=== PATIENT | male | born 2000 | race African-American/Black ===

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

== ENCOUNTER 2018-01-01 16:45 | Emergency (ER) | payer OTHER ==
[2018-01-01] MEDS ORDERED: HYDROmorphone 0.5 MG/0.5 ML SYRINGE ONE (17:33)
[2018-01-01 18:05] LABS: Reticulocyte Count 8.2 % (0.5-1.5)
[2018-01-01 18:12] LABS: Hemoglobin 9.5 g/dL (14.0-18.0); Mean Corpuscular HGB CONC 33.8 g/dL (32.0-36.0); Mean Corpuscular Hemoglobin 25.3 pg (25.0-35.0); Mean Platelet Volume 6.1 fL (7.4-10.4); Platelet Count 264 thou/uL (130-400); RBC Distribution Width 18.8 % (11.5-14.5); Red Blood Cell (RBC) Count 3.74 mill/uL (4.00-5.20); White Blood Cell (WBC) Count 11.9 thou/uL (4.8-10.8)
[2018-01-01 18:14] LABS: Anion Gap 12 mmol/L (10-20); BUN (Urea Nitrogen) 5 mg/dL (8.4-21.0); Calc. Creatinine Clearance 0 mL/min (70-130); Calcium 8.6 mg/dL (7.8-10.44); Carbon Dioxide 24 mmol/L (22-29); Chloride 104 mmol/L (98-107); Estimated GFR-MDRD Greater than 90; Glucose 70 mg/dL (70-105); Sodium 136 mmol/L (136-145)
[2018-01-01 18:29] LABS: Anisocytosis MODERATE=16-30 cells (100X) (0-5/hpf); Band 1 % (5-11); Eosinophils 5 % (0-10); Howell Jolly Bodies SLIGHT = 1-2 cells (100X) (None Seen); Lymphocytes 45 % (28-48); MDiff Complete? YES; Macrocytosis SLIGHT = 6-15 cells (100X) (0-5/hpf); Microcytosis SLIGHT = 6-15 cells (100X) (0-5/hpf); Monocytes 9 % (0-4); Neutrophil 36 % (31-61); Nucleated RBC 4 % (0); Ovalocytes SLIGHT = 2-5 cells (100X) (0-1/hpf); Poikilocytosis SLIGHT = 6-15 cells (100X) (0-5/hpf); Polychromasia MODERATE = 3-4 cells (100X) (0-2/hpf); Reflex for Review?? NO; Sickle Cells MODERATE= 6-15 cells (100X) (None Seen); Target Cells SLIGHT = 2-5 cells (100X) (0-1/hpf)
--- NOTE | 2018-01-01 19:50 | RAD ---
ONE VIEW CHEST: HISTORY: Sickle cell disease. Anemia. Pain. COMPARISON: 08/22/2017 and 10/05/2017 FINDINGS: Portable upright chest shows a normal cardiac silhouette. The pulmonary vessels and hilum are normal . The costophrenic angles are clear. No mass. No consolidation. No pneumothorax or acute osseous abnormalities. Chronic changes in the left humeral head are noted. IMPRESSION: No acute cardiopulmonary process. POS: [facility]
== END 2018-01-01 21:24 | disposition home or self-care (01) ==
LOC: ERS 16:45
DX: D57.00 Hb-SS disease with crisis, unspecified (principal); Z86.73 Personal history of transient ischemic attack (TIA), and cerebral infarction without residual deficits; Z79.899 Other long term (current) drug therapy
CPT/HCPCS: 71045; 80048; 85025; 85046; 96361; 96365; 96366; J1170

== ENCOUNTER 2018-01-05 13:35 | Emergency (ER) | payer OTHER ==
[2018-01-05] MEDS ORDERED: HYDROcodone/Acetaminophen 5/325 mg Tablet ONE (14:35)
[2018-01-05 14:59] LABS: Reticulocyte Count 8.8 % (0.5-1.5)
[2018-01-05 15:07] LABS: Hemoglobin 9.7 g/dL (14.0-18.0); Mean Corpuscular HGB CONC 33.6 g/dL (32.0-36.0); Mean Corpuscular Hemoglobin 25.5 pg (25.0-35.0); Mean Corpuscular Volume 75.9 fL (78.0-98.0); Mean Platelet Volume 11.3 fL (7.4-10.4); Platelet Count 297 thou/uL (130-400); RBC Distribution Width 18.1 % (11.5-14.5); Red Blood Cell (RBC) Count 3.81 mill/uL (4.00-5.20); White Blood Cell (WBC) Count 12.2 thou/uL (4.8-10.8)
[2018-01-05 15:20] LABS: ALT (SGPT) 14 U/L (8-55); AST (SGOT) 32 U/L (10-45); Albumin 4.1 g/dL (3.5-5.0); Alkaline Phosphatase 84 U/L (Less than 750); Anion Gap 10 mmol/L (10-20); BUN (Urea Nitrogen) 6 mg/dL (8.4-21.0); Bilirubin, Total 2.2 mg/dL (0.2-1.2); Calc. Creatinine Clearance 0 mL/min (70-130); Calcium 8.8 mg/dL (7.8-10.44); Carbon Dioxide 27 mmol/L (22-29); Chloride 104 mmol/L (98-107); Estimated GFR-MDRD Greater than 90; Globulin 3.5 g/dL (2.4-3.5); Glucose 79 mg/dL (70-105); Protein, Total 7.6 g/dL (6.0-8.3); Sodium 137 mmol/L (136-145)
[2018-01-05 15:22] LABS: Acanthocytes SLIGHT = 1-5 cells (100X) (None Seen); Anisocytosis SLIGHT = 6-15 cells (100X) (0-5/hpf); Band 1 % (5-11); Lymphocytes 26 % (28-48); MDiff Complete? YES; Monocytes 3 % (0-4); Neutrophil 69 % (31-61); Nucleated RBC 2 % (0); PLT Morphology Comment Appears Adequate; Polychromasia SLIGHT = 2-3 cells (100X) (0-2/hpf); Sickle Cells SLIGHT = 1-5 cells (100X) (None Seen); Target Cells SLIGHT = 2-5 cells (100X) (0-1/hpf)
--- NOTE | 2018-01-05 15:40 | RAD ---
RADIOGRAPH CHEST 2 VIEWS: HISTORY: 17-year-old male with painful mid sternal mass. FINDINGS: There is no air space density, pulmonary edema, pleural effusion, pneumothorax, or cardiomegaly. IMPRESSION: 1. No acute cardiopulmonary findings. 2. For palpable mass in the chest, consider CT with contrast, if clinically suspicious for aggressiv e process. lily [] POS: [facility]
== END 2018-01-05 15:40 | disposition home or self-care (01) ==
LOC: ERS 13:35
DX: D57.00 Hb-SS disease with crisis, unspecified (principal); Z79.899 Other long term (current) drug therapy
CPT/HCPCS: 36415; 71046; 80053; 85025; 85046

== ENCOUNTER 2018-02-11 11:39 | Emergency (ER) | payer OTHER ==
[2018-02-11 12:29] LABS: Reticulocyte Count 6.9 % (0.5-1.5)
[2018-02-11] MEDS ORDERED: Ketorolac Tromethamine 30 MG/ML VIAL ONE (12:36)
[2018-02-11] MEDS ORDERED: Ondansetron HCl/PF 4 MG/2 ML Vial ONE (12:36)
[2018-02-11 12:46] LABS: ALT (SGPT) 22 U/L (8-55); AST (SGOT) 40 U/L (10-45); Albumin 4.4 g/dL (3.5-5.0); Alkaline Phosphatase 85 U/L (Less than 750); Anion Gap 9 mmol/L (10-20); BUN (Urea Nitrogen) 5 mg/dL (8.4-21.0); Calc. Creatinine Clearance 0 mL/min (70-130); Calcium 8.8 mg/dL (7.8-10.44); Carbon Dioxide 26 mmol/L (22-29); Chloride 107 mmol/L (98-107); Estimated GFR-MDRD Greater than 90; Globulin 3.5 g/dL (2.4-3.5); Glucose 84 mg/dL (70-105); Potassium 3.9 mmol/L (3.5-5.1); Protein, Total 7.9 g/dL (6.0-8.3); Sodium 138 mmol/L (136-145)
[2018-02-11 12:52] LABS: Anisocytosis SLIGHT = 6-15 cells (100X) (0-5/hpf); Eosinophils 12 % (0-10); Hemoglobin 10.5 g/dL (14.0-18.0); Lymphocytes 23 % (28-48); MDiff Complete? YES; Mean Corpuscular HGB CONC 35.3 g/dL (32.0-36.0); Mean Corpuscular Hemoglobin 25.4 pg (25.0-35.0); Mean Corpuscular Volume 71.8 fL (78.0-98.0); Mean Platelet Volume 5.5 fL (7.4-10.4); Monocytes 10 % (0-4); Neutrophil 51 % (31-61); Nucleated RBC 2 % (0); PLT Morphology Comment Appears Adequate; Platelet Count 257 thou/uL (130-400); Polychromasia SLIGHT = 2-3 cells (100X) (0-2/hpf); Reactive Lymphocytes 4 % (0-10); Red Blood Cell (RBC) Count 4.12 mill/uL (4.00-5.20); Schistocytes SLIGHT = 2-5 cells (100X) (0-1/hpf); Sickle Cells SLIGHT = 1-5 cells (100X) (None Seen); White Blood Cell (WBC) Count 12.2 thou/uL (4.8-10.8)
--- NOTE | 2018-02-11 12:53 | RAD ---
PORTABLE CHEST: HISTORY: Back pain and chest pain. FINDINGS: The lung parra are clear. No infiltrate. Heart and mediastinum unremarkable. Osseous structures s how deformity of the humeral head on the left which is stable. IMPRESSION: No acute abnormality. POS: [facility]
[2018-02-11 13:39] LABS: Bilirubin Negative (Negative); Blood, Urine Negative (Negative); Clarity CLEAR (Clear); Glucose, Urine (Dipstick) Negative (Negative); Leukocyte Negative (Negative); Nitrite Negative (Negative); Protein, Urine (Dipstick) Negative (Neg-Trace); Specific Gravity, Urine 1.011 (1.002-1.036)
== END 2018-02-11 14:52 | disposition home or self-care (01) ==
LOC: ERS 11:39
DX: D57.1 Sickle-cell disease without crisis (principal); M54.5 Low back pain; Z86.73 Personal history of transient ischemic attack (TIA), and cerebral infarction without residual deficits; Z87.891 Personal history of nicotine dependence; Z79.899 Other long term (current) drug therapy
CPT/HCPCS: 71045; 80053; 81003; 85025; 85046; 96361; 96374; 96375; J1885; J2270; J2405

== ENCOUNTER 2018-02-20 23:12 | Inpatient (IN) | payer OTHER, SELFPAY ==
[2018-02-20] MEDS ORDERED: Morphine 4 MG/ML VIAL ONE (23:32)
[2018-02-20] MEDS ORDERED: Ketorolac Tromethamine 30 MG/ML VIAL ONE (23:33)
[2018-02-20 23:47] LABS: Reticulocyte Count 8.7 % (0.5-1.5)
--- NOTE | 2018-02-20 23:47 | RAD ---
CHEST ONE VIEW: HISTORY: Shortness of breath. COMPARISON: Chest radiograph from 02/11/2018. FINDINGS: Heart size is mildly enlarged for age. There are abnormal perihilar air space opacities. No pneumot horax or effusion. IMPRESSION: 1. Mildly increased perihilar air space opacities may reflect atypical infectious process versus acu te chest syndrome in a sickle cell patient. 2. Osteonecrosis of both humeral heads, which can be seen with chronic sickle cell disease. POS: [facility]
[2018-02-21] LABS: ALT (SGPT) 29 U/L (8-55); AST (SGOT) 43 U/L (10-45); Albumin 4.2 g/dL (3.5-5.0); Alkaline Phosphatase 96 U/L (Less than 750); Anion Gap 12 mmol/L (10-20); BUN (Urea Nitrogen) 7 mg/dL (8.4-21.0); Bilirubin, Total 2.1 mg/dL (0.2-1.2); Calc. Creatinine Clearance 0 mL/min (70-130); Calcium 8.8 mg/dL (7.8-10.44); Carbon Dioxide 23 mmol/L (22-29); Chloride 107 mmol/L (98-107); Estimated GFR-MDRD Greater than 90; Globulin 3.9 g/dL (2.4-3.5); Glucose 104 mg/dL (70-105); Magnesium 2.3 mg/dL (1.7-2.2); Potassium 3.7 mmol/L (3.5-5.1); Protein, Total 8.1 g/dL (6.0-8.3); Sodium 138 mmol/L (136-145)
[2018-02-21 00:04] LABS: CKMB 0.4 ng/mL (0-6.6); Troponin I Less than 0.010 ng/mL (< 0.028)
[2018-02-21 00:10] LABS: Anisocytosis MODERATE=16-30 cells (100X) (0-5/hpf); Band 3 % (5-11); Eosinophils 3 % (0-10); Hemoglobin 9.7 g/dL (14.0-18.0); Lymphocytes 53 % (28-48); MDiff Complete? YES; Mean Corpuscular HGB CONC 34.1 g/dL (32.0-36.0); Mean Corpuscular Hemoglobin 24.9 pg (25.0-35.0); Mean Platelet Volume 5.7 fL (7.4-10.4); Monocytes 8 % (0-4); Neutrophil 33 % (31-61); Nucleated RBC 1 % (0); PLT Morphology Comment Appears Adequate; Platelet Count 331 thou/uL (130-400); RBC Distribution Width 20.6 % (11.5-14.5); Sickle Cells SLIGHT = 1-5 cells (100X) (None Seen); White Blood Cell (WBC) Count 16.2 thou/uL (4.8-10.8)
--- NOTE | 2018-02-21 00:13 | CT ---
CT BRAIN WITHOUT CONTRAST: HISTORY: Sickle cell disease. Pain. Headache. COMPARISON: CT brain from 2012. FINDINGS: There is a similar appearance to the asymmetric volume loss in the right cerebral hemisphere. No acu te intracranial hemorrhage or infarct. No midline shift or mass effect. Prior right craniectomy savannah nges. The paranasal sinuses and mastoids are clear. IMPRESSION: No acute intracranial abnormality. POS: [facility]
[2018-02-21] MEDS ORDERED: Metoclopramide HCl 10 MG/2 ML VIAL ONE (00:29)
[2018-02-21] MEDS ORDERED: HYDROcodone/Acetaminophen 10/325 mg Tablet ONE (00:29)
[2018-02-21] MEDS ORDERED: diphenhydrAMINE 50 MG/ML VIAL ONE (00:29)
[2018-02-21] MEDS ORDERED: cefTRIAXone\\ROCEPHIN 1 GM VIAL ONE (00:57)
[2018-02-21 01:26] LABS: Bilirubin Negative (Negative); Blood, Urine Negative (Negative); Clarity CLEAR (Clear); Glucose, Urine (Dipstick) Negative (Negative); Leukocyte Negative (Negative); Nitrite Negative (Negative); Protein, Urine (Dipstick) Negative (Neg-Trace); Specific Gravity, Urine 1.012 (1.002-1.036)
[2018-02-21] MEDS ORDERED: Fentanyl 100 MCG/2 ML VIAL SLOW IVP PRN (05:54)
[2018-02-21] MEDS ORDERED: HYDROcodone/Acetaminophen 5/325 mg Tablet PO PRN ×3 (05:55→14:08)
[2018-02-21 06:15] VITALS: BMI 23.4
[2018-02-21] MEDS: Sodium Chloride 0.45% 1,000 ML IV SCH ×2 (06:31→14:32)
[2018-02-21] MEDS ORDERED: Ondansetron ODT 4 MG TAB PO PRN (14:08)
[2018-02-21] MEDS ORDERED: Ondansetron HCl/PF 4 MG/2 ML Vial IVP PRN (14:08)
[2018-02-21] MEDS ORDERED: Acetaminophen 500 MG TAB PO PRN (14:08)
--- NOTE | 2018-02-21 15:28 | HP ---
DATE OF ADMISSION: 02/21/2018 PRIMARY CARE PHYSICIAN: Andrés Shaw M.D. CHIEF COMPLAINT: Headache and left chest wall pain. HISTORY OF PRESENT ILLNESS: This is a 17-year-old -Greenlandic male with a significant history o f sickle cell disease presenting with right-sided headache beginning in the last 24 hours with associ ated right eye pain. The patient denies any recent trauma, injury, visual disturbance, ear drainage, water submersion or high altitude exposure. The patient reports a history of subdural hematoma in t he context of sickle cell disease as a child. The patient has also undergone a splenectomy and abdirizak cystectomy as well as sustaining a left-sided cerebrovascular accident with residual left upper extre mity contracture and weakness. The patient has also had a history of bilateral septic shoulder joint s in the context of sickle cell disease. The patient denies any specific fever, chills, increased co ugh, congestion, or purulent sputum. The patient denied central chest pain, pressure, left arm disco mfort. The patient does admit some difficulty with ambulation with left hip pain. The patient appar ently recently relocated to the [facility] after residing in the [facility] for approximately 3 years. The patient denies any specific difficulty with speech, swallowing, or decreased appetite. The patient denies any change to bowel habits, dysuria or blood in the stool. I n the emergency room, the patient underwent general evaluation including chest imaging showing no acu te infiltrates. The patient received IV Rocephin, Reglan, Benadryl, [place], Toradol, morphine sulfate , and intravenous normal saline x1 liter. EKG evaluation showed first degree AV block. The patient was transferred to the telemetry unit for further evaluation. PAST MEDICAL HISTORY: 1. History of sickle cell disease with crisis. 2. History of cerebrovascular accident in the context of sickle cell disease with left upper extremi ty weakness and contracture. 3. History of subdural hematoma. 4. History of septic arthritis of the shoulder joint. PAST SURGICAL HISTORY: 1. Status post splenectomy. 2. Status post laparoscopic cholecystectomy. 3. Status post left shoulder incision and drainage. CURRENT MEDICATIONS: 1. Pen-VK 250 mg p.o. b.i.d. 2. Hydroxyurea 1000 mg p.o. q.a.m. 3. Folic acid 1 mg p.o. daily. 4. Tramadol p.r.n., sickle cell crisis. ALLERGIES: No known drug allergies. FAMILY HISTORY: Positive for hypertension. SOCIAL HISTORY: The patient resides with his mother in [place], [place]. No current alcohol, tobacco or illicit drug use. REVIEW OF SYSTEMS: The following complete review of systems was negative, unless otherwise mentioned in the HPI or below: Constitutional: Weight loss or gain, ability to conduct usual activities. Skin: Rash, itching. Eyes: Double vision, pain. ENT/Mouth: Nose bleeding, neck stiffness, pain, tenderness. Cardiovascular: Palpitations, dyspnea on exertion, orthopnea. Respiratory: Shortness of breath, wheezing, cough, hemoptysis, fever or night sweats. Gastrointestinal: Poor appetite, abdominal pain, heartburn, nausea, vomiting, constipation, or diarr hea. Genitourinary: Urgency, frequency, dysuria, nocturia. Musculoskeletal: Pain, swelling. Neurologic/Psychiatric: Anxiety, depression. Allergy/Immunologic: Skin rash, bleeding tendency. PHYSICAL EXAMINATION: VITAL SIGNS: On admission, blood pressure 105/59, pulse 61, respiratory rate 16, temperature 97.7 de grees Fahrenheit, O2 saturation 100% on 2 liters per minute by nasal cannula. GENERAL APPEARANCE: This is a 17-year-old -Greenlandic male, alert and oriented x3, pleasant, co nversant, in no acute distress. HEENT: Pupils are equal, round, and reactive to light and accommodation. Extraocular muscles are in tact. No scleral icterus, no conjunctival injection. Nares patent. OP is clear. Teeth in good rep air. NECK: Supple, no cervical adenopathy, no thyromegaly, no carotid bruits, no JVD appreciated. Cervic al spine with full active and passive range of motion. No meningeal signs appreciated. CHEST: Lungs are clear to auscultation bilaterally. CARDIOVASCULAR: S1, S2 with 1-2/6 systolic ejection murmur at the apex. ABDOMEN: Rounded, soft, nontender, nondistended. Bowel sounds are positive in all four quadrants. There is no hepatosplenomegaly, no abdominal bruits, no rebound or guarding appreciated. EXTREMITIES: Left upper extremity with contractures consistent with prior CVA history. Bilateral lo wer extremities without asymmetric edema. Pulses palpable distally at the dorsalis pedis, posterior tibial, and popliteal arteries bilaterally. Capillary refill less than 2 seconds. NEUROLOGIC: Cranial nerves II through XII are grossly intact. Left upper extremity weakness and con tracture as stated previously. Moves all extremities. Not observed ambulatory during this exam. No facial asymmetry. PERTINENT LABORATORY DATA AND X-RAY FINDINGS: Basic metabolic profile within normal limits. Calcium 8.8, magnesium 2.3, total bilirubin 2.1, AST 43, ALT 29, albumin 4.2. CBC showed a white blood cell count of 16.2, hemoglobin 9.7, hematocrit 29, MCV 73, platelet count 331 with 33% neutrophils, 3% ba nds, 53% lymphocytes. Reticulocyte count 8.7. Urinalysis on 02/21/2018, negative. CT of the brain without contrast dated 02/20/2018 showed no acute intracranial process. Portable chest x-ray dated 02/20/2018 showed mild perihilar opacities. Osteonecrosis of both humeral heads noted. EKG dated by my interpretation shows sinus mechanism with first degree AV block. Normal R-wave progre ssion noted in the precordial leads. Normal axis. No acute ST-T wave changes appreciated. Telemetr y monitoring currently shows second degree AV block, type 1. ASSESSMENT AND PLAN: 1. Sickle cell pain crisis. The patient will be admitted to the telemetry unit. We will continue i ntravenous normal saline 100 mL per hour, morphine sulfate 2 mg IV every 4 hours p.r.n. pain, [place] 5 /325 mg 1-2 tabs p.o. q.6 hours p.r.n. pain. Continue serial CBC assessment and reticulocyte count t rending. 2. Second degree AV block, type 1. Appears to be a new finding. We will consult Cardiology Service for evaluation. Avoid AV blocking agents. Electrolytes reviewed and within normal limits. 3. Chronic microcytic anemia secondary to sickle cell disease. Stable hemoglobin currently. We marva l continue to trend hemoglobin with repeat CBC in the a.m. 4. Headache, etiology unclear. Initial CT imaging of the brain unremarkable. We will continue supp ortive management as outlined previously and monitor clinical response. 5. Prophylaxis. Sequential compression devices while in bed. Pepcid 20 mg p.o. b.i.d. 6. Code status is full. Surrogate medical decision maker is the patient's mother.
[2018-02-21] MEDS: Sodium Chloride 0.9% 1,000 ML IV SCH ×2 (15:41→23:20)
[2018-02-21] MEDS: Penicillin V Potassium 250 MG TAB PO SCH ×2 (15:53→20:23)
--- NOTE | 2018-02-21 20:19 | CON ---
DATE OF CONSULTATION: 02/21/2018 REASON FOR CONSULTATION: Sickle cell disease. HISTORY OF PRESENT ILLNESS: Mr. Lock is a 17-year-old male with history of sickle cell disease who presented to the emergency room with headache and right eye pain starting approximately 24 hours prior to presentation. He had a brain CT, which showed no acute process. He had a chest x-ray which showed some mildly increased perihilar airspace opacities that could represent an atypical infectious process. Patient had some left chest wall pain and rib pain, no nausea, vomiting or fever. He was admitted for sickle cell pain crisis and possible acute chest syndrome. He was started on O2 and IV fluids, given a dose of Rocephin in the emergency room. Patient lives in [facility] with his father until recently. He now lives with his mother in [place]. She states he has pain crisis several times annually. Review of medical records , he was here in August for sickle cell pain crisis and received 1 unit of packed RBCs. He is managed by his primary care physician. Since admission, he denies any shortness of breath or cough. He was placed on telemetry and is noted that he has an AV block on the manager monitoring. Patient has no prior cardiac issues. PAST MEDICAL HISTORY: 1. Sickle cell disease. 2. Cerebrovascular accident as an infant with left upper extremity weakness and contracture. 3. History of subdural hematoma as an infant. 4. Septic arthritis of shoulders. PAST SURGICAL HISTORY: 1. Splenectomy. 2. Cholecystectomy. 3. I&D of the left shoulder. ALLERGIES: No known drug allergies. HOME MEDICATIONS: 1. Hydrea 1000 mg daily. 2. Penicillin V 250 mg t.i.d. 3. Folic acid 1 mg daily. FAMILY HISTORY: Family history of sickle cell. SOCIAL HISTORY: He is single, lives with his mother. No alcohol, tobacco or illicit drug use. REVIEW OF SYSTEMS: Twelve-point review of systems is negative except for noted in HPI. PHYSICAL EXAMINATION: VITAL SIGNS: Temperature is 98.1, pulse is 56, respiratory rate 16, BP is 103/ 56. She is 100% on room air. GENERAL: Well-developed, well-nourished male in no acute distress. HEENT: Normocephalic, atraumatic. Pupils are equal and reactive to light. NECK: Supple. CARDIOVASCULAR: In regular rate and rhythm. LUNGS: Clear. ABDOMEN: Soft, nontender, bowel sounds are positive. EXTREMITIES: No clubbing, cyanosis or edema. SKIN: No rash. HEMATOLOGIC: No petechia or purpura. NEUROLOGIC: Patient has left upper extremity weakness with a hand contracture. PSYCHIATRIC: The patient is alert and oriented and appropriate. PERTINENT LABORATORY AND X-RAYS: Current WBCs are 16.2, hemoglobin 9.7, hematocrit 28.5, platelet count is 331,000. He has 33% neutrophils, 53% lymphocytes, 8% monocytes. His retic count is 8.7. Sodium 138, potassium 3.7, chloride 107, CO2 is 23, BUN is 7, creatinine 0.73, calcium is 8.8, bilirubin is 2.1, AST is 43, ALT is 29, alkaline phosphatase is 96, magnesium is 2.3. Serum total protein 8.1, albumin 4.2, globulin 3.9. Troponin is negative. Radiology per HPI. ASSESSMENT PLAN: 1. Sickle cell disease with likely pain crisis. 2. Left chest and rib pain. DISCUSSION: The patient has been placed on O2 and IV fluids. His antibiotic has been resumed. He has been started back on folic acid and hydroxyurea. He has appropriate pain medications and has been encouraged to use if needed. Recommend continued monitoring of his CBC and transfuse p.r.n. He will follow up in the outpatient setting with his primary care. Case discussed with Dr. Loya and Dr. cee. FRANCISCO
[2018-02-21] MEDS: Hydroxyurea 500 MG CAP PO SCH (20:22)
[2018-02-21] MEDS: Folic Acid 1 MG TAB PO SCH (20:22)
[2018-02-21] MEDS: Famotidine 20 MG TAB PO SCH (20:23)
--- NOTE | 2018-02-21 23:25 | CON ---
DATE OF CONSULTATION: 02/21/2018 This is an electrophysiology consultation dictated as scribe. REFERRING PHYSICIAN: Cezar Viramontes DO REASON FOR CONSULTATION: A second-degree AV block. CHIEF COMPLAINT: Headache and left chest/axillary wall pain. HISTORY OF PRESENT ILLNESS: Mr. Lock is a 17-year-old -[place]egalese gentleman with a history of sickle-cell disease who presented with right chest wall pain that extended into the axilla and also a right-sided headache, which was a new symptom for him. During evaluation and workup, he had been p laced on telemetry for monitoring, which showed an existing first-degree AV block and then later noti cecille a second-degree AV block, prompting the consultation. The patient has not had any dizziness, lig htheadedness, passing out episodes at all, and no symptoms that correlate with the timing of the arrh ythmias. He has been admitted to telemetry for further evaluation. REVIEW OF SYSTEMS: A 12-point review of systems was conducted and is negative except that listed abo ve in the HPI. PAST MEDICAL HISTORY: 1. Sickle-cell disease with crisis. 2. Cerebrovascular accident with left upper extremity deficits, chronic, occurred at age 17 months. 3. History of subdural hematoma. 4. History of septic arthritis to the shoulder joint. PAST SURGICAL HISTORY: Splenectomy, laparoscopic cholecystectomy, as well as left shoulder I&D. ALLERGIES: No known drug allergies. HOME MEDICATIONS: Pen VK 500 mg p.o. b.i.d., hydroxyurea 1000 mg p.o. q.a.m., folic acid 1 mg daily, and tramadol as needed. FAMILY HISTORY: Positive for hypertension. Negative for sudden cardiac or early onset coronar y artery disease. SOCIAL HISTORY: Lives with his mother. Negative for alcohol, tobacco, or illicit drug use. PHYSICAL EXAMINATION: VITAL SIGNS: Most recent vital signs are temperature 97.2 degrees Fahrenheit, pulse 59, oxygen is 10 0% on 1 liter nasal cannula, blood pressure 101/58, respirations 16. NEUROLOGIC: The patient is alert, oriented. Speech is clear. Affect is appropriate. Pupils are eq ual, round, reactive, and accommodating to light. HEENT: Head is normocephalic, atraumatic. Sclerae are anicteric. EOMs are intact. His oral mucosa is moist and pink with adequate dentition. NECK: Supple without jugular venous distention. LUNGS: Clear to auscultation bilaterally. HEART: Heart rate is regularly regular with crisp S1, S2. PMI is nondisplaced. EXTREMITIES: Warm and dry to touch without clubbing, cyanosis, or edema. ABDOMEN: Soft and nontender without palpable masses. Normal positive bowel tones noted throughout. NEUROLOGIC: Grossly intact and nonfocal other than the previously existing deficits in the left uppe r extremity from his prior CVA. Gait was not assessed. DATABASE: Telemetry and EKG were reviewed, largely reflecting sinus rhythm with an existing first-de gree AV block that measures roughly 350 milliseconds. Occasionally, he will have episodes of a secon d-degree Mobitz type 1. LABORATORY DATA: Hematology: WBC 16.2, hemoglobin 9.7, hematocrit 28.5, platelet count is 331. Zena subhash: Sodium 3.7, BUN 7, creatinine 0.73. IMPRESSION: 1. Second-degree Mobitz type 1 AV block. 2. Headache. 3. Sickle-cell disease with exacerbation. PLAN: At this time, there is no definite indication for a permanent pacemaker. We recommend avoidin g AV sarah blocking agents in the future and also discussed this with the patient and his mother. Wi th an asymptomatic second-degree Mobitz type 1, continued monitoring is appropriate. We discussed th at if he has any episodes of dizziness, passing out, or becomes symptomatic in a concerning way, then we would certainly like to know and do further workup. All questions were answered. The patient an d his mother voiced understanding and agreed with the plan of care. Thank you for allowing us to participate in the care of this patient. If there is anything further w e can do, we are happy to help.
[2018-02-22] MEDS ORDERED: Morphine 4 MG/ML VIAL SLOW IVP PRN (00:43)
[2018-02-22] MEDS: HYDROcodone/Acetaminophen 5/325 mg Tablet PO PRN ×2 (02:10→08:28)
[2018-02-22 05:46] LABS: Anisocytosis SLIGHT = 6-15 cells (100X) (0-5/hpf); Eosinophils 1 % (0-10); Hemoglobin 8.5 g/dL (14.0-18.0); Lymphocytes 21 % (28-48); MDiff Complete? YES; Mean Corpuscular HGB CONC 33.9 g/dL (32.0-36.0); Mean Corpuscular Hemoglobin 25.3 pg (25.0-35.0); Mean Corpuscular Volume 74.6 fL (78.0-98.0); Mean Platelet Volume 6.2 fL (7.4-10.4); Monocytes 11 % (0-4); Neutrophil 67 % (31-61); Nucleated RBC 2 % (0); PLT Morphology Comment Appears Adequate; Platelet Count 213 thou/uL (130-400); Polychromasia MODERATE = 3-4 cells (100X) (0-2/hpf); RBC Distribution Width 21.5 % (11.5-14.5); Red Blood Cell (RBC) Count 3.37 mill/uL (4.00-5.20); Schistocytes SLIGHT = 2-5 cells (100X) (0-1/hpf); Sickle Cells MODERATE= 6-15 cells (100X) (None Seen); Target Cells SLIGHT = 2-5 cells (100X) (0-1/hpf); White Blood Cell (WBC) Count 15.4 thou/uL (4.8-10.8)
[2018-02-22 05:49] LABS: ALT (SGPT) 22 U/L (8-55); AST (SGOT) 37 U/L (10-45); Albumin 3.6 g/dL (3.5-5.0); Alkaline Phosphatase 85 U/L (Less than 750); Anion Gap 12 mmol/L (10-20); BUN (Urea Nitrogen) 4 mg/dL (8.4-21.0); Bilirubin, Total 2.1 mg/dL (0.2-1.2); Calc. Creatinine Clearance 194 mL/min (70-130); Calcium 8.5 mg/dL (7.8-10.44); Carbon Dioxide 21 mmol/L (22-29); Chloride 107 mmol/L (98-107); Estimated GFR-MDRD Greater than 90; Globulin 3.5 g/dL (2.4-3.5); Glucose 87 mg/dL (70-105); Potassium 3.8 mmol/L (3.5-5.1); Protein, Total 7.1 g/dL (6.0-8.3); Sodium 136 mmol/L (136-145)
[2018-02-22] MEDS: Famotidine 20 MG TAB PO SCH ×2 (08:28→21:20)
[2018-02-22] MEDS: Senokot S 8.6-50 MG TAB PO SCH ×2 (08:28→21:20)
[2018-02-22] MEDS: Penicillin V Potassium 250 MG TAB PO SCH ×3 (08:28→21:20)
[2018-02-22] MEDS: Sodium Chloride 0.9% 1,000 ML IV SCH ×3 (10:56→21:21)
--- NOTE | 2018-02-22 14:32 | PDOC.PN ---
- Subjective Encounter Start Date: 02/22/18 Encounter Start Time: 14:25 Subjective: f/u for sickle cell pain crisis, second-degree AVB. Some R shoulder pain. -: No SOB or chest pain. - Objective Resuscitation Status: Resuscitation Status FULL:Full Resuscitation MAR Reviewed: Yes Vital Signs & Weight: Vital Signs (12 hours) Temp Pulse Resp BP Pulse Ox 02/22/18 11:04 97.9 F 72 14 116/58 L 93 L 02/22/18 07:41 97.9 F 72 14 117/62 94 L 02/22/18 04:01 98.4 F 70 16 117/63 93 L Weight Weight 162 lb 14.746 oz I&O: 02/21/18 02/22/18 02/23/18 06:59 06:59 06:59 Intake Total 3360 Output Total 2295 Balance 1065 Result Diagrams: 02/22/18 04:35 02/22/18 04:35 Additional Labs: Microbiology 02/21/18 01:06 Venous blood - Right Hand Blood Culture - Preliminary Specimen has been received and culture in progress. No Growth to date. 02/21/18 00:59 Venous blood - Right Arm Blood Culture - Preliminary Specimen has been received and culture in progress. No Growth to date. Laboratory Tests 02/20/18 02/20/18 02/22/18 23:23 23:23 04:35 WBC 16.2 H Hgb 9.7 L Plt Count 331 Magnesium 2.3 H Total Bilirubin 2.1 H 2.1 H EKG Reviewed by me: Yes (Tele - SR 1st degree AVB) Phys Exam - Physical Examination Constitutional: NAD HEENT: PERRLA, sclera anicteric, oral pharynx no lesions Neck: no nodes, no JVD, supple, full ROM Respiratory: no wheezing, no rales, no rhonchi, clear to auscultation bilateral I/ SHAYLA LUSB Cardiovascular: RRR, no significant murmur, no rub, gallop Gastrointestinal: soft, non-tender, no distention, positive bowel sounds Musculoskeletal: no edema, pulses present Neurological: normal sensation, moves all 4 limbs Psychiatric: normal affect, A&O x 3 Skin: no rash, normal turgor, cap refill <2 seconds Dx/Plan (1) Sickle cell anemia with crisis Code(s): D57.00 - HB-SS DISEASE WITH CRISIS, UNSPECIFIED Status: Acute Comment: Continue IVF's, continue Morphine sulfate and [place], serial H/H (2) Second degree AV block, Mobitz type I Code(s): I44.1 - ATRIOVENTRICULAR BLOCK, SECOND DEGREE Status: Acute Comment : Asymptomatic, no intervention per EP recommendations (3) Microcytic anemia Code(s): D50.9 - IRON DEFICIENCY ANEMIA, UNSPECIFIED Status: Chronic Comment : Stable, continue serial monitoring, CBC in am (4) Headache Code(s): R51 - HEADACHE Status: Acute Comment: Symptomatic mgmt, CT brain negative - Plan plan discussed w/ family, professor of social work, out of bed/ambulate, DVT proph w/SCDs Stable overall -: Decrease IVF 75ml/h -: Continue Morphine Sulfate IV -: Continue [place] -: OOB/ambulate * AM lab: CBC, Reticulocyte count
[2018-02-22] MEDS: Folic Acid 1 MG TAB PO SCH (21:20)
[2018-02-23 06:18] LABS: Reticulocyte Count 10.2 % (0.5-1.5)
[2018-02-23 06:33] LABS: Hemoglobin 9.1 g/dL (14.0-18.0); Hypochromia SLIGHT = 6-15 cells (100X) (0-5/hpf); Lymphocytes 37 % (28-48); MDiff Complete? YES; Mean Corpuscular HGB CONC 36.1 g/dL (32.0-36.0); Mean Corpuscular Volume 72.2 fL (78.0-98.0); Mean Platelet Volume 5.6 fL (7.4-10.4); Monocytes 7 % (0-4); Neutrophil 56 % (31-61); Nucleated RBC 5 % (0); PLT Morphology Comment Appears Adequate; Platelet Count 263 thou/uL (130-400); Polychromasia SLIGHT = 2-3 cells (100X) (0-2/hpf); RBC Distribution Width 21.4 % (11.5-14.5); Red Blood Cell (RBC) Count 3.51 mill/uL (4.00-5.20); Schistocytes SLIGHT = 2-5 cells (100X) (0-1/hpf); Sickle Cells MODERATE= 6-15 cells (100X) (None Seen); Target Cells SLIGHT = 2-5 cells (100X) (0-1/hpf); White Blood Cell (WBC) Count 26.1 thou/uL (4.8-10.8)
[2018-02-23] MEDS: Penicillin V Potassium 250 MG TAB PO SCH ×3 (08:22→21:47)
[2018-02-23] MEDS: Senokot S 8.6-50 MG TAB PO SCH ×2 (08:22→21:47)
[2018-02-23] MEDS: Famotidine 20 MG TAB PO SCH ×2 (08:22→21:46)
[2018-02-23] MEDS: Sodium Chloride 0.9% 1,000 ML IV SCH ×2 (11:22→16:04)
--- NOTE | 2018-02-23 12:56 | PDOC.PN ---
- Subjective Encounter Start Date: 02/23/18 Encounter Start Time: 12:45 Subjective: f/u for sickle cell pain crisis. c/o of worsening R shoulder pain with -: difficulty moving the shoulder. Hx of L shoulder septic arthritis in the -: past. No fever. - Objective Resuscitation Status: Resuscitation Status FULL:Full Resuscitation MAR Reviewed: Yes Vital Signs & Weight: Vital Signs (12 hours) Temp Pulse Resp BP Pulse Ox 02/23/18 11:18 98.1 F 66 14 118/61 95 02/23/18 07:35 98.2 F 90 12 108/64 94 L 02/23/18 03:19 99.0 F 82 22 H 106/66 93 L Weight Weight 128 lb 8.472 oz I&O: 02/22/18 02/23/18 02/24/18 06:59 06:59 06:59 Intake Total 3360 2807 Output Total 2295 2565 Balance 1065 242 Result Diagrams: 02/23/18 05:20 02/22/18 04:35 Additional Labs: Microbiology 02/21/18 01:06 Venous blood - Right Hand Blood Culture - Preliminary Specimen has been received and culture in progress. No Growth to date. 02/21/18 00:59 Venous blood - Right Arm Blood Culture - Preliminary Specimen has been received and culture in progress. No Growth to date. Laboratory Tests 02/20/18 02/20/18 02/20/18 23:23 23:23 23:23 WBC 16.2 H Hgb 9.7 L Plt Count 331 Retic Count 8.7 H Magnesium 2.3 H Ferritin Total Bilirubin 2.1 H 02/22/18 02/22/18 02/23/18 04:35 04:35 05:20 WBC 15.4 H Hgb 8.5 L Plt Count Retic Count 10.2 H Magnesium Ferritin Total Bilirubin 2.1 H 02/23/18 11:19 WBC Hgb Plt Count Retic Count Magnesium Ferritin 313.75 Total Bilirubin Radiology Reviewed by me: Yes (PCXR - osteonecrosis of bilat humeral heads) EKG Reviewed by me: Yes (Tele - SR) Phys Exam - Physical Examination Constitutional: NAD HEENT: PERRLA, sclera anicteric, oral pharynx no lesions Neck: no nodes, no JVD, supple, full ROM Respiratory: no wheezing, no rales, no rhonchi, clear to auscultation bilateral S1, S2 Cardiovascular: RRR, no rub, gallop Gastrointestinal: soft, non-tender, no distention, positive bowel sounds R shoulder effusion, +TTP, decreased ROM, N/V intact distally L shoulder atrophy and contracture(chronic) LUE Musculoskeletal: pulses present Neurological: normal sensation, moves all 4 limbs Psychiatric: normal affect, A&O x 3 Skin: no rash, normal turgor, cap refill <2 seconds Dx/Plan (1) Effusion of shoulder joint, right Code(s): M25.411 - EFFUSION, RIGHT SHOULDER Status: Acute Comment: suspicious for potential septic arthritis vs aseptic effusion due to sickle cell dz, consult Ortho for arthrocentesis, pain control as needed, start empiric Cipro/Vancomycin pending arthrocentesis (2) Sickle cell anemia with crisis Code(s): D57.00 - HB-SS DISEASE WITH CRISIS, UNSPECIFIED Status: Acute Comment: Continue IVF's, continue Morphine sulfate and [place], serial H/H (3) Second degree AV block, Mobitz type I Code(s): I44.1 - ATRIOVENTRICULAR BLOCK, SECOND DEGREE Status: Acute Comment : Asymptomatic, no intervention per EP recommendations (4) Microcytic anemia Code(s): D50.9 - IRON DEFICIENCY ANEMIA, UNSPECIFIED Status: Chronic Comment : Stable, continue serial monitoring, CBC in am (5) Headache Code(s): R51 - HEADACHE Status: Acute Comment: Symptomatic mgmt, CT brain negative - Plan plan discussed w/ family, PT/OT, social services director, DVT proph w/SCDs Stable currently -: Decrease IVF 50ml/h -: Continue Morphine sulfate and [place] -: Continue Folate -: AM Lab: CBC, Retic count * .
--- NOTE | 2018-02-23 15:32 | RAD ---
RIGHT SHOULDER THREE VIEWS: History: 17-year-old male with history of right shoulder pain. FINDINGS: There is some subchondral lucency and sclerosis worrisome for humeral head avascular necrosis. The sahil arash have the appearance of sickle cell disease. IMPRESSION: No acute fracture or dislocation. Evidence for right humeral head avascular necrosis without signific ant subchondral collapse or acute fracture or dislocation. POS: [facility]
--- NOTE | 2018-02-23 15:44 | RAD ---
LEFT SHOULDER THREE VIEWS: History: Left shoulder pain. FINDINGS: There is very severe deformity and flattening of the humeral head as well as the adjacent glenoid wit h some sclerosis and subchondral lucency. Appearance certainly raises concern for very extensive long standing avascular necrosis with resultant severe deformity. The possibility of a coexistent old fra cture is a consideration as well. There is some scattered sclerosis of the humeral neck and proximal humeral diaphysis. IMPRESSION: Appearance consistent with that of sickle cell disease with very severe deformity and flattening of t he humeral head with sclerosis and subchondral cystic changes and significant deformity as well as de formity of the glenoid which could be residual from very long standing avascular necrosis, this could conceivably also be residual from an old fracture as well. No acute fracture or dislocation. POS: [facility]
[2018-02-23] MEDS ORDERED: Lidocaine 1% (PF) 30 ML VIAL ONE (16:49)
--- NOTE | 2018-02-23 21:20 | CON ---
DATE OF CONSULTATION: 02/23/2018 We were asked by Hospitalist to see the patient. HISTORY OF PRESENT ILLNESS: The patient is a 17-year-old black male, who has been in the hospital fo r a few days, but yesterday he started having some right shoulder pain. This was concerning as three years ago, he had had some left shoulder pain and per the mother was not really addressed and he was sent from clinic to hospital and various other places and finally 3 months later, they did a shoulde r tap and it was full of pus. Once they went in to wash it out, they drilled a few holes in the nirali ral head and it was found to be full of pus also. So, mother, hospitalist, and the patient were all quite concerned about this. The pain started yesterday with no acuity and no injury. He does have s ome weakness on his left side from a past cerebral infarct. Denies any fevers or chills, but the baldo ulder is quite sore with movement and palpation. He is able to feel his fingers and move his right s reina well. Medical team is maintaining all of his other medical issues. 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 PAST SURGICAL HISTORY: Splenectomy, cholecystectomy, shoulder I&D. CURRENT MEDICATIONS: He was started on penicillin, hydroxyurea, folic acid, tramadol. ALLERGIES: None. FAMILY HISTORY: Hypertension. SOCIAL HISTORY: The patient lives with his mom. No alcohol, nicotine, or drug use. REVIEW OF SYSTEMS: Currently, he is resting in bed in no acute distress. He does have right shoulde r pain, but denies any other positive complaints. Review of systems is negative. PHYSICAL EXAMINATION: GENERAL: Well-nourished young male, little bit thin, but in no acute distress. Answers questions ok ay. Mom is at bedside. HEENT: Normal exam. Face is symmetric. Tongue midline. NECK: Supple. Trachea midline. EXTREMITIES: Upper extremity: His left upper extremity is atrophied, contracted. He has some movem ent to the shoulder, but not moving his hand all that much. Right upper extremity, he is moving his extremity well, but any movement causes right shoulder pain. Palpation of his shoulder is tender thr oughout and it is a little bit swollen and mildly increased warmth compared to the right. ASSESSMENT: 1. Multiple health issues. 2. Right shoulder pain. We did get some x-rays of the right upper extremity and it was read as avascular necrosis. We did no t see any joint issues, but there is an area of lucency that we are concerned about. Therefore, we a re going to order an MRI. PLAN: As above. Keep the patient n.p.o. after midnight in lieu of possibly washing the patient out. This has been explained to the family. We will get the MRI in the morning and depending on the MRI , we will plan for incision and drainage washout. We will wait for MRI results and then will further evaluate the patient. Phillip Ward PA-C for Dr. Tin Wilkins.
[2018-02-23] MEDS: Folic Acid 1 MG TAB PO SCH (21:46)
[2018-02-24] MEDS: HYDROcodone/Acetaminophen 5/325 mg Tablet PO PRN ×3 (00:07→18:12)
[2018-02-24 05:45] LABS: Reticulocyte Count 9.7 % (0.5-1.5)
[2018-02-24] MEDS: Sodium Chloride 0.9% 1,000 ML IV SCH (05:45)
[2018-02-24 05:58] LABS: Band 9 % (5-11); Eosinophils 4 % (0-10); Hemoglobin 8.6 g/dL (14.0-18.0); Lymphocytes 31 % (28-48); MDiff Complete? YES; Mean Corpuscular HGB CONC 34.4 g/dL (32.0-36.0); Mean Corpuscular Hemoglobin 25.2 pg (25.0-35.0); Mean Platelet Volume 5.7 fL (7.4-10.4); Monocytes 11 % (0-4); Neutrophil 45 % (31-61); Nucleated RBC 1 % (0); PLT Morphology Comment Appears Adequate; Platelet Count 223 thou/uL (130-400); RBC Distribution Width 19.9 % (11.5-14.5); Red Blood Cell (RBC) Count 3.43 mill/uL (4.00-5.20); Sickle Cells MODERATE= 6-15 cells (100X) (None Seen); White Blood Cell (WBC) Count 13.9 thou/uL (4.8-10.8)
[2018-02-24] MEDS: Penicillin V Potassium 250 MG TAB PO SCH ×3 (09:08→20:53)
[2018-02-24] MEDS: Famotidine 20 MG TAB PO SCH ×2 (09:08→20:54)
--- NOTE | 2018-02-24 09:45 | MRI ---
RIGHT SHOULDER MRI WITHOUT IV CONTRAST: Date: 02/24/18 HISTORY: 17-year-old male with history of right shoulder pain. TECHNIQUE: Multiplanar, multisequence MRI examination of the right shoulder is performed. FINDINGS: There is extensive abnormal marrow signal in the humeral head, evidence for avascular necrosis, with minimal subchondral collapse. There is some marrow edema extending into the humeral neck. There is, i n addition, a somewhat S-shaped area of altered signal in the proximal humeral diaphysis which may we ll represent a small focus of additional bone infarct changes. The AC joint is unremarkable. Rotator cuff tendons appear to be within normal limits. Rotator cuff muscles are within normal limits of sign al and volume. The visualized labrum is unremarkable. There is some increased fluid in the bicipital recess, as well as some edema adjacent to the lateral aspect of the humeral neck, nonspecific. 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 In addition, there is a somewhat S-shaped area of abnormal signal in the humeral neck, e vidence for bone infarct. Minimal increased amount of fluid within the bicipital recess with some min imal fat stranding adjacent to the lateral aspect of the humeral neck and extending down adjacent to the proximal humeral diaphysis, nonspecific, possibly some nonspecific inflammatory changes or reacti ve changes to the osteonecrosis and bone infarct changes in the proximal humerus. No evidence for oth er significant acute internal derangement. POS: [facility]
[2018-02-24] MEDS: Senokot S 8.6-50 MG TAB PO SCH ×2 (10:12→20:54)
--- NOTE | 2018-02-24 16:06 | PDOC.PN ---
- Subjective Encounter Start Date: 02/24/18 Encounter Start Time: 16:00 Subjective: f/u for sickle cell pain crisis, R should pain with MRI showing -: osteonecrosis of humeral head. No intervention per Ortho currently - Objective Resuscitation Status: Resuscitation Status FULL:Full Resuscitation MAR Reviewed: Yes Vital Signs & Weight: Vital Signs (12 hours) Temp Pulse Resp BP BP Pulse Ox 02/24/18 15:40 97.7 F 72 18 104/58 L 94 L 02/24/18 12:01 97.8 F 96 17 116/56 L 94 L 02/24/18 08:15 98.2 F 85 18 93 L 02/24/18 07:34 98.2 F 85 18 102/58 L 94 L Weight Weight 124 lb 8.979 oz I&O: 02/23/18 02/24/18 02/25/18 06:59 06:59 06:59 Intake Total 2807 2321 Output Total 2565 2500 Balance 242 -179 Result Diagrams: 02/24/18 04:50 02/22/18 04:35 Additional Labs: Microbiology 02/21/18 01:06 Venous blood - Right Hand Blood Culture - Preliminary Specimen has been received and culture in progress. No Growth to date. 02/21/18 00:59 Venous blood - Right Arm Blood Culture - Preliminary Specimen has been received and culture in progress. No Growth to date. Laboratory Tests 02/20/18 02/20/18 02/20/18 23:23 23:23 23:23 WBC 16.2 H Hgb 9.7 L Plt Count 331 Retic Count 8.7 H Magnesium 2.3 H Ferritin Total Bilirubin 2.1 H 02/22/18 02/22/18 02/23/18 04:35 04:35 05:20 WBC 15.4 H Hgb 8.5 L Plt Count Retic Count 10.2 H Magnesium Ferritin Total Bilirubin 2.1 H 02/23/18 11:19 WBC Hgb Plt Count Retic Count Magnesium Ferritin 313.75 Total Bilirubin Radiology Reviewed by me: Yes (MRI R shoulder - +osteonecrosis, bone infarct) EKG Reviewed by me: Yes (Tele - SR in 80's) Phys Exam - Physical Examination Constitutional: NAD HEENT: PERRLA, sclera anicteric, oral pharynx no lesions Neck: no nodes, no JVD, supple, full ROM Respiratory: no wheezing, no rales, no rhonchi, clear to auscultation bilateral S1, S2 Cardiovascular: RRR, no significant murmur, no rub, gallop Gastrointestinal: soft, non-tender, no distention, positive bowel sounds R shoulder with TTP anteriorly, n/v intact distally Musculoskeletal: pulses present Neurological: normal sensation, moves all 4 limbs Psychiatric: normal affect, A&O x 3 Skin: no rash, normal turgor, cap refill <2 seconds Dx/Plan (1) Effusion of shoulder joint, right Code(s): M25.411 - EFFUSION, RIGHT SHOULDER Status: Acute Comment: + osteonecrosis confirmed on MRI imaging, pain control as needed (2) Sickle cell anemia with crisis Code(s): D57.00 - HB-SS DISEASE WITH CRISIS, UNSPECIFIED Status: Acute Comment: Saline lock IVF, continue Morphine sulfate and [place], serial H/H (3) Second degree AV block, Mobitz type I Code(s): I44.1 - ATRIOVENTRICULAR BLOCK, SECOND DEGREE Status: Acute Comment : Asymptomatic, no intervention per EP recommendations (4) Microcytic anemia Code(s): D50.9 - IRON DEFICIENCY ANEMIA, UNSPECIFIED Status: Chronic Comment : Stable, continue serial monitoring, CBC in am (5) Headache Code(s): R51 - HEADACHE Status: Acute Comment: Symptomatic mgmt, CT brain negative - Plan neonatal social worker, out of bed/ambulate Stable overall -: Pain control with po meds -: Saline Lock IVF's -: Education about osteonecrosis -: Resume Hydroxyurea * Home in am 02/25/18
[2018-02-24] MEDS: Folic Acid 1 MG TAB PO SCH (20:54)
[2018-02-24] MEDS: Hydroxyurea 500 MG CAP PO SCH (20:54)
[2018-02-25] MEDS: Famotidine 20 MG TAB PO SCH (08:15)
[2018-02-25] MEDS: Senokot S 8.6-50 MG TAB PO SCH (08:16)
[2018-02-25] MEDS: Penicillin V Potassium 250 MG TAB PO SCH (08:16)
[2018-02-25 11:16] VITALS: BP 104/57; TEMP 98.4
--- NOTE | 2018-02-25 20:11 | DIS ---
DATE OF ADMISSION: 02/21/2018 DATE OF DISCHARGE: 02/25/2018 DISCHARGE DIAGNOSES: 1. Sickle cell anemia with crisis. 2. 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 3. Second-degree AV block, Mobitz type 1, transient conservative management. 4. Microcytic anemia secondary to sickle cell disease, stable. 5. Headache, tension type, resolved. CONSULTATIONS: Dr. Wilkins with Orthopedic Surgery Service. Dr. Longo with Electrophysiology Servic e. Hematology Service. PERTINENT LABORATORY AND X-RAY FINDINGS: Magnesium 2.3, total bilirubin 2.1, AST ranged between 37-4 3, ALT ranged between 22-29, ferritin 313.8. CBC showed a white blood cell count ranging between 13. 9-26.1, hemoglobin ranged between 8.5-9.7. Reticulocyte count ranged between 8.7-10.2. Blood cultur es x2 from 02/21/2018 showed no growth at [address] of the brain without contrast dated 8 showed no acute intracranial process. Portable chest x-ray dated 02/20/2018 showed osteonecrosis o f both humeral heads. Mild increased perihilar densities. Three views of the right shoulder dated 0 02/23/2018 showed no acute fracture or dislocation. Right humeral head avascular necrosis noted. MRI of the right shoulder dated 02/24/2018 showed extensive osteonecrosis of the humeral head with minim al edema. HOSPITAL COURSE: The patient was initially admitted after presenting with headache and left chest wa ll pain in the context of known sickle cell disease. The patient underwent extensive evaluation and diagnosed with sickle cell pain crisis. The patient was given IV fluids as well as IV morphine sulfa te and [place]. Serial CBC and reticulocyte trending showed overall stable values and patient did not require transfusion during the hospital course. Telemetry monitoring did reveal a second degree AV b lock type 1 prompting electrophysiology evaluation. Due to patient's transient findings, no specific recommendation for medical management was given. The patient was treated medically with general sup portive care with return to sinus mechanism. The patient was evaluated by the Hematology Service dur ing his hospital course due to history of sickle cell disease; however, no specific acute interventio n was recommended with chronic multivitamin and folate supplements were recommended. The patient was slow to clinically improve complaining of increased right shoulder pain prompting radiographic imagi ng and including MRI imaging showing osteonecrosis of the humeral head. Orthopedic surgery evaluatio n recommended no specific acute intervention and surveillance over time as an outpatient. No evidenc e of infectious process was identified, and patient continued on pain control and general range of mo tion. Overall, the patient remained clinically stable during the hospital course. I have examined the patient's time of discharge and discussed followup instructions with the patient and family. Family verbalized understanding and agreement, ready for discharge on 02/25/2018. DISCHARGE MEDICATIONS: 1. Hydroxyurea 1000 mg p.o. at bedtime. 2. Penicillin V 250 mg p.o. t.i.d. 3. Folic acid 1 mg p.o. daily. 4. [place] 5/325 mg 1-2 tabs p.o. q.6 hours p.r.n. pain, #30. FOLLOWUP: The patient to follow up with his primary care provider Dr. Andrés Shaw within 7 days of discharge. The patient will follow up with Dr. Wilkins with Orthopedic Surgery Service. CONDITION ON DISCHARGE: Fair. ACTIVITY: Ad ct. DIET: Regular. CODE STATUS: FULL. DISPOSITION: Home 02/25/2018. Total time preparing and coordinating discharge 33 minutes.
== END 2018-02-25 11:59 | disposition home or self-care (01) | DRG 812 ==
LOC: ERS 23:12 → 2NO 02-21 03:14
PROVIDERS: ADMIT Hospitalist; ATTEND Hospitalist
DX: D57.00 Hb-SS disease with crisis, unspecified (principal); M87.9 Osteonecrosis, unspecified; I69.334 Monoplegia of upper limb following cerebral infarction affecting left non-dominant side; I44.1 Atrioventricular block, second degree; D50.9 Iron deficiency anemia, unspecified; R51 Headache; M25.411 Effusion, right shoulder; Z90.81 Acquired absence of spleen; Z90.49 Acquired absence of other specified parts of digestive tract; Z82.49 Family history of ischemic heart disease and other diseases of the circulatory system
CPT/HCPCS: 36415; 70450; 71045; 80053; 81003; 82553; 82728; 83735; 84484; 85007; 85025; 85027; 85046; 87040; 93005; 96361; 96365; 96375; A4216; J0696; J1200; J1885; J2001; J2270; J2405; J2765; Q0162

== ENCOUNTER 2018-05-16 19:31 | Emergency (ER) | payer OTHER, MEDICAID ==
[2018-05-16] MEDS ORDERED: Acetaminophen 500 MG TAB ONE (20:05)
[2018-05-16] MEDS ORDERED: Metoclopramide HCl 10 MG/2 ML VIAL ONE (20:05)
[2018-05-16] MEDS ORDERED: Ketorolac Tromethamine 30 MG/ML VIAL ONE (20:05)
--- NOTE | 2018-05-16 21:35 | CT ---
CT BRAIN: 05/16/18 HISTORY: Headache. Noncontrast enhanced CT images of the brain obtained. Comparison made to previous exams from 02/20/18. Noncontrast enhanced CT images of the brain demonstrates some thinning of the right frontal scalp wit h previous right frontal scalp injury. There is overall asymmetry with the right cerebral hemisphere being smaller than the left. These findings are stable and unchanged since the previous exam. No evidence of acute intracranial masses or lesions seen. IMPRESSION: Stable CT appearance of the brain. No acute intracranial pathology seen. POS: [facility]
== END 2018-05-16 22:09 | disposition home or self-care (01) ==
LOC: ERS 19:31
DX: R51 Headache (principal); Z86.73 Personal history of transient ischemic attack (TIA), and cerebral infarction without residual deficits; Z79.899 Other long term (current) drug therapy
CPT/HCPCS: 70450; 96365; 96366; 96375; J1885; J2765

== ENCOUNTER 2018-06-04 07:08 | Emergency (ER) | payer OTHER, MEDICAID ==
[2018-06-04 08:31] LABS: Reticulocyte Count 8.2 % (0.5-1.5)
[2018-06-04 08:36] LABS: ALT (SGPT) 21 U/L (8-55); AST (SGOT) 50 U/L (10-45); Albumin 4.6 g/dL (3.5-5.0); Alkaline Phosphatase 96 U/L (Less than 750); Anion Gap 14 mmol/L (10-20); BUN (Urea Nitrogen) 9 mg/dL (8.4-21.0); Bilirubin, Total 3.2 mg/dL (0.2-1.2); Calc. Creatinine Clearance 0 mL/min (70-130); Calcium 9.3 mg/dL (7.8-10.44); Carbon Dioxide 22 mmol/L (22-29); Chloride 106 mmol/L (98-107); Estimated GFR-MDRD Greater than 90; Globulin 4.1 g/dL (2.4-3.5); Glucose 99 mg/dL (70-105); Potassium 4.6 mmol/L (3.5-5.1); Protein, Total 8.7 g/dL (6.0-8.3); Sodium 137 mmol/L (136-145)
[2018-06-04] MEDS ORDERED: Acetaminophen 325 MG TAB ONE (08:46)
[2018-06-04] MEDS ORDERED: diphenhydrAMINE 25 MG CAP ONE (08:46)
[2018-06-04] MEDS ORDERED: Morphine 4 MG/ML VIAL ONE ×3 (08:46→13:52)
[2018-06-04 08:56] LABS: Hemoglobin 10.9 g/dL (14.0-18.0); Mean Corpuscular HGB CONC 33.7 g/dL (32.0-36.0); Mean Corpuscular Hemoglobin 24.9 pg (25.0-35.0); Mean Corpuscular Volume 73.8 fL (78.0-98.0); Mean Platelet Volume 6.6 fL (7.4-10.4); Platelet Count 294 thou/uL (130-400); RBC Distribution Width 19.7 % (11.5-14.5); Red Blood Cell (RBC) Count 4.38 mill/uL (4.00-5.20); White Blood Cell (WBC) Count 19.7 thou/uL (4.8-10.8)
[2018-06-04 09:06] LABS: Acanthocytes SLIGHT = 1-5 cells (100X) (None Seen); Anisocytosis SLIGHT = 6-15 cells (100X) (0-5/hpf); Band 1 % (5-11); Eosinophils 5 % (0-10); Hypochromia MODERATE=16-30 cells (100X) (0-5/hpf); Large Platelets SLIGHT; Lymphocytes 8 % (28-48); MDiff Complete? YES; Macrocytosis SLIGHT = 6-15 cells (100X) (0-5/hpf); Microcytosis SLIGHT = 6-15 cells (100X) (0-5/hpf); Monocytes 18 % (0-4); Neutrophil 68 % (31-61); PLT Morphology Comment Appears Adequate; Polychromasia SLIGHT = 2-3 cells (100X) (0-2/hpf); Sickle Cells MODERATE= 6-15 cells (100X) (None Seen); Target Cells SLIGHT = 2-5 cells (100X) (0-1/hpf)
[2018-06-04] MEDS ORDERED: HYDROcodone/Acetaminophen 10/325 mg Tablet ONE (13:52)
== END 2018-06-04 14:53 | disposition home or self-care (01) ==
LOC: ERS 07:08
DX: D57.00 Hb-SS disease with crisis, unspecified (principal); Z79.899 Other long term (current) drug therapy; Z86.73 Personal history of transient ischemic attack (TIA), and cerebral infarction without residual deficits
CPT/HCPCS: 36415; 80053; 85025; 85046; J2270

== ENCOUNTER 2018-06-05 09:01 | Inpatient (IN) | payer OTHER ==
[2018-06-05] MEDS ORDERED: HYDROmorphone 0.5 MG/0.5 ML SYRINGE ONE ×3 (10:53→13:47)
[2018-06-05 11:02] LABS: Reticulocyte Count 10.9 % (0.5-1.5)
--- NOTE | 2018-06-05 11:08 | RAD ---
SINGLE VIEW OF THE CHEST: Comparison: 02-20-18 History: Sickle cell crisis with bilateral leg pain and back pain. FINDINGS: Single view of the chest shows a normal sized cardiomediastinal silhouette. There is no evidence of c onsolidation, mass, or pleural effusion. The bones are unremarkable. IMPRESSION: No evidence of acute cardiopulmonary disease. POS: [facility]
[2018-06-05] MEDS ORDERED: Acetaminophen 325 MG TAB ONE (11:09)
[2018-06-05 11:17] LABS: Hemoglobin 11.7 g/dL (14.0-18.0); Mean Corpuscular HGB CONC 33.7 g/dL (32.0-36.0); Mean Corpuscular Hemoglobin 25.5 pg (25.0-35.0); Mean Corpuscular Volume 75.5 fL (78.0-98.0); Platelet Count 297 thou/uL (130-400); RBC Distribution Width 20.6 % (11.5-14.5); Red Blood Cell (RBC) Count 4.59 mill/uL (4.00-5.20); White Blood Cell (WBC) Count 18.6 thou/uL (4.8-10.8)
[2018-06-05 11:23] LABS: ALT (SGPT) 27 U/L (8-55); AST (SGOT) 46 U/L (10-45); Albumin 4.5 g/dL (3.5-5.0); Alkaline Phosphatase 99 U/L (Less than 750); Anion Gap 18 mmol/L (10-20); BUN (Urea Nitrogen) 7 mg/dL (8.4-21.0); Bilirubin, Total 3.3 mg/dL (0.2-1.2); Calc. Creatinine Clearance 0 mL/min (70-130); Calcium 9.4 mg/dL (7.8-10.44); Carbon Dioxide 17 mmol/L (22-29); Chloride 105 mmol/L (98-107); Estimated GFR-MDRD Greater than 90; Globulin 4.3 g/dL (2.4-3.5); Glucose 83 mg/dL (70-105); Protein, Total 8.8 g/dL (6.0-8.3); Sodium 136 mmol/L (136-145)
[2018-06-05 11:42] LABS: Band 2 % (5-11); Hypochromia SLIGHT = 6-15 cells (100X) (0-5/hpf); Lymphocytes 20 % (28-48); MDiff Complete? YES; Microcytosis SLIGHT = 6-15 cells (100X) (0-5/hpf); Monocytes 17 % (0-4); Neutrophil 61 % (31-61); Nucleated RBC 1 % (0); Polychromasia MODERATE = 3-4 cells (100X) (0-2/hpf); Sickle Cells MODERATE= 6-15 cells (100X) (None Seen); Target Cells MODERATE= 6-15 cells (100X) (0-1/hpf)
[2018-06-05] MEDS ORDERED: Ketorolac Tromethamine 30 MG/ML VIAL ONE (12:36)
[2018-06-05] MEDS ORDERED: Ondansetron PF 4 MG/2 ML Vial ONE (13:47)
[2018-06-05] MEDS ORDERED: Acetaminophen 325 MG TAB PO PRN (16:16)
[2018-06-05] MEDS ORDERED: Ondansetron ODT 4 MG TAB PO PRN (16:16)
[2018-06-05] MEDS ORDERED: Calcium Carbonate 500 MG ChewTAB PO PRN (16:16)
[2018-06-05] MEDS ORDERED: Ondansetron PF 4 MG/2 ML Vial IVP PRN (16:16)
[2018-06-05] MEDS ORDERED: Bisacodyl 10 MG SUPP PR PRN (16:16)
--- NOTE | 2018-06-05 16:52 | HP ---
PRIMARY CARE PHYSICIAN: Dr. Shaw. CHIEF COMPLAINT: Generalized pain. HISTORY OF PRESENT ILLNESS: The patient is a 17-year-old male with sickle cell anemia, presented to the emergency room with generalized pain, especially in his back and bilateral leg. The pain started yesterday and progressively got worse. It is 9/10, constant without any aggravating or relieving factor. He also had some nausea and vomiting. No fevers, chills, cough, shortness of breath, wheezing, skin rash, dysuria, hematuria, urgency or diarrhea reported. He had a normal bowel movement yesterday. He was seen in the emergency room yesterday for similar complaint and was discharged home with hydrocodone. His pain progressively got worse, for which he presented to the emergency room. In the emergency room, initial vital signs showed temperature of 98.4, respirations 17, pulse of 83, blood pressure of 103/56 with O2 saturation of 100% on room air. His pain level was 9/10. He was started on IV fluids along with Dilaudid. After Dilaudid, the patient started developing nausea, for which Dilaudid has been discontinued. He denies any abdominal discomfort. His EKG in the emergency room showed sinus rhythm with first-degree AV block. PAST MEDICAL HISTORY: 1. Sickle cell anemia. 2. History of CVA with left-sided weakness. 3. History of subdural hematoma. 4. History of septic arthritis of the shoulder joint. 5. History of second-degree AV block Mobitz type 1 in February of this year that was treated conservatively by Electrophysiology. 6. Chronic anemia. PAST SURGICAL HISTORY: 1. Splenectomy. 2. Laparoscopic cholecystectomy. 3. Left shoulder incision and drainage. ALLERGIES: NO KNOWN DRUG ALLERGIES. CURRENT HOME MEDICATIONS: 1. Folic acid 1 mg daily. 2. [place] p.r.n. for pain. 3. Hydroxyurea 1000 mg daily. 4. Penicillin VK 250 mg b.i.d. FAMILY HISTORY: Positive for hypertension. SOCIAL HISTORY: He currently lives at home with his mother. He denies any current use of tobacco, alcohol, or drug use. REVIEW OF SYSTEMS: The patient denies any new focal neurologic deficits. All other review of systems was reviewed and were found negative. PHYSICAL EXAMINATION: VITAL SIGNS: As discussed above. GENERAL: A 17-year-old male, in moderate distress due to significant pain. HEENT: Head; atraumatic, normocephalic. Sclerae anicteric. Dry mucous membranes. No oral lesion. NECK: Supple. No JVD. No carotid bruit. LUNGS: Clear to auscultation bilaterally. No wheezing, rales, or rhonchi. HEART: S1 and S2 present. Regular rate and rhythm. No murmurs, rubs, or gallops appreciated. Tachycardic. ABDOMEN: Soft, nontender. Bowel sounds present. EXTREMITIES: No edema or calf tenderness. NEUROLOGIC: The patient has chronic left-sided weakness. No other focal neurologic deficit appreciated. PSYCHIATRIC: Alert, awake, oriented x3. SKIN: Warm and dry. LYMPH NODE: No palpable lymph nodes in the neck. Peripheral, vascular, radial pulses palpable bilaterally. MUSCULOSKELETAL: No joint swelling or tenderness. LABORATORY FINDINGS: CBC showed WBC of 18.6 with a reticulocyte of 10.9, hemoglobin 11.7, hematocrit 34.7. There was moderate amount of sickle cell on CBC. Chemistry showed sodium 136, potassium 4, chloride 105, bicarb 17, BUN 7, creatinine 0.64, glucose of 83, total bilirubin 3.3, AST 46, ALT 27. EKG, by my review, showed sinus rhythm with first-degree AV block. MD interval was 220 milliseconds. Chest x-ray, by my review, was negative for infiltrate. IMPRESSION: 1. Vaso-occlusive sickle cell crisis. 2. History of sickle cell anemia. 3. Metabolic acidosis, probably secondary to dehydration. 4. Leukocytosis, unlikely to be infectious. His chest x-ray was negative. 5. History of cerebrovascular accident with residual left-sided weakness. 6. History of second-degree AV block type 1, last admission. PLAN: Inpatient admit, IV fluids, oxygen. Recheck reticulocyte in a.m. We will continue folic acid and hydroxyurea. Pain control with IV narcotics. Urinalysis will be ordered. His chest x-ray was negative. The patient was advised to follow up with a plate and frame filter operator as outpatient. Plan of care was discussed with the patient in detail. He stated understanding. Job ID: [id number]
[2018-06-05] MEDS ORDERED: Morphine 2 MG/ML SYRINGE ONE (18:02)
[2018-06-05] MEDS: Senokot S 8.6-50 MG TAB PO SCH (21:38)
[2018-06-05] MEDS: Morphine 2 MG/ML SYRINGE SLOW IVP PRN (22:12)
[2018-06-06] MEDS: Dextrose 5 %-0.45 % NaCl 1,000 ML IV SCH ×4 (00:15→15:54)
[2018-06-06] MEDS: Morphine 2 MG/ML SYRINGE SLOW IVP PRN ×5 (02:19→20:26)
[2018-06-06 05:03] VITALS: BMI 19.0
[2018-06-06 05:22] LABS: Reticulocyte Count 7.8 % (0.5-1.5)
[2018-06-06 05:33] LABS: ALT (SGPT) 23 U/L (8-55); AST (SGOT) 31 U/L (10-45); Albumin 3.7 g/dL (3.5-5.0); Alkaline Phosphatase 83 U/L (Less than 750); Anion Gap 11 mmol/L (10-20); BUN (Urea Nitrogen) 6 mg/dL (8.4-21.0); Calc. Creatinine Clearance 151 mL/min (70-130); Calcium 8.2 mg/dL (7.8-10.44); Carbon Dioxide 23 mmol/L (22-29); Chloride 102 mmol/L (98-107); Estimated GFR-MDRD Greater than 90; Globulin 3.3 g/dL (2.4-3.5); Glucose 284 mg/dL (70-105); Magnesium 1.9 mg/dL (1.7-2.2); Potassium 3.6 mmol/L (3.5-5.1); Sodium 132 mmol/L (136-145)
[2018-06-06 05:44] LABS: Eosinophils 1 % (0-10); Hemoglobin 9.6 g/dL (14.0-18.0); Lymphocytes 37 % (28-48); MDiff Complete? YES; Mean Corpuscular HGB CONC 34.3 g/dL (32.0-36.0); Mean Corpuscular Hemoglobin 25.6 pg (25.0-35.0); Mean Corpuscular Volume 74.8 fL (78.0-98.0); Mean Platelet Volume 12.5 fL (7.4-10.4); Microcytosis SLIGHT = 6-15 cells (100X) (0-5/hpf); Monocytes 5 % (0-4); Neutrophil 57 % (31-61); Nucleated RBC 1 % (0); PLT Morphology Comment Appears Adequate; Platelet Count 255 thou/uL (130-400); Polychromasia SLIGHT = 2-3 cells (100X) (0-2/hpf); RBC Distribution Width 19.4 % (11.5-14.5); Red Blood Cell (RBC) Count 3.74 mill/uL (4.00-5.20); Sickle Cells SLIGHT = 1-5 cells (100X) (None Seen); Target Cells SLIGHT = 2-5 cells (100X) (0-1/hpf); White Blood Cell (WBC) Count 26.6 thou/uL (4.8-10.8)
[2018-06-06] MEDS: HYDROcodone/Acetaminophen 5/325 mg Tablet PO PRN ×4 (05:46→22:02)
[2018-06-06] MEDS: Senokot S 8.6-50 MG TAB PO SCH ×2 (08:11→20:26)
[2018-06-06] MEDS: Folic Acid 1 MG TAB PO SCH (08:11)
[2018-06-06] MEDS: cefTRIAXone\\ROCEPHIN 1 GM in Sodium Chloride 0.9% 100 ML IVPB SCH (08:11)
[2018-06-06] MEDS ORDERED: Prevnar 13-Val Conj/PF 0.5 ML SYRINGE IM ONE (09:00)
[2018-06-06 11:33] LABS: Bilirubin Negative (Negative); Blood, Urine Negative (Negative); Clarity CLEAR (Clear); Glucose, Urine (Dipstick) Negative (Negative); Leukocyte Negative (Negative); Nitrite Negative (Negative); Protein, Urine (Dipstick) Negative (Neg-Trace); Specific Gravity, Urine 1.006 (1.002-1.036)
[2018-06-06] MEDS: Sodium Chloride 0.45% 1,000 ML IV SCH (17:39)
--- NOTE | 2018-06-06 22:27 | PDOC.PN ---
- Subjective Encounter Start Date: 06/06/18 Encounter Start Time: 20:00 Patient seen and examined for sickle cell crisis. Pain controlled with current meds. No new complaints. No overnight events - Objective Resuscitation Status - Order Detail: 06/05/18 16:16 Resuscitation Status Routine Resuscitation Status: FULL: Full Resuscitation MAR Reviewed: Yes Vital Signs & Weight: Vital Signs (12 hours) Temp Pulse Resp BP Pulse Ox 06/06/18 16:35 99 F 100 16 115/60 96 06/06/18 11:37 99.3 F 104 H 16 124/61 95 Weight Weight 132 lb 4.8 oz I&O: 06/05/18 06/06/18 06/07/18 06:59 06:59 06:59 Intake Total 2954 Output Total 1925 Balance 1029 Result Diagrams: 06/06/18 04:37 06/06/18 04:37 EKG Reviewed by me: Yes (Tele SR) Phys Exam - Physical Examination Constitutional: NAD Respiratory: no wheezing, no rales, no rhonchi, clear to auscultation bilateral Cardiovascular: RRR, no rub Gastrointestinal: soft, non-tender, no distention, positive bowel sounds Musculoskeletal: no edema, pulses present Dx/Plan - Plan DVT proph w/SCDs 1. Vaso-occlusive sickle cell crisis. 2. History of sickle cell anemia. 3. Metabolic acidosis 4. Leukocytosis 5. History of cerebrovascular accident with residual left-sided weakness. 6. History of second-degree AV block type 1, last admission. PLAN: Cont IV fluids/oxygen/folic acid and hydroxyurea. Cont IV Morphine AM labs Consult ID Start Empiric Ceftriaxone Laboratory Tests 06/06/18 04:37 Retic Count 7.8 H Review of Systems - Review of Systems Respiratory: negative: Cough, Dry, Shortness of Breath, Hemoptysis, SOB with Excertion, Pleuritic Pain, Sputum, Wheezing Cardiovascular: negative: chest pain, palpitations, orthopnea, paroxysmal nocturnal dyspnea, edema, light headedness, other - Medications/Allergies Allergies/Adverse Reactions: Allergies Allergy/AdvReac Type Severity Reaction Status Date / Time No Known Allergies Allergy Verified 06/06/18 06:19 Medications: Current Medications Acetaminophen (Tylenol) 650 mg PO Q4H PRN PRN Reason: Headache/Fever/Mild Pain (1-3) Hydrocodone Bitart/Acetaminophen ([place] 5/325) 1 tab PO Q4H PRN PRN Reason: Moderate Pain (4-6) Last Admin: 06/06/18 22:02 Dose: 1 tab Bisacodyl (Dulcolax) 10 mg [place] DAILYPRN PRN PRN Reason: Constipation Calcium Carbonate (Tums) 1,000 mg PO Q4H PRN PRN Reason: Heartburn or Indigestion Folic Acid (Folvite) 1 mg PO DAILY [facility] Last Admin: 06/06/18 08:11 Dose: 1 mg Ceftriaxone Sodium 1 gm/ (Sodium Chloride) 100 mls @ 200 mls/hr IVPB Q24HR [facility] Last Admin: 06/06/18 08:11 Dose: 100 mls Sodium Chloride (1/2 Normal Saline) 1,000 mls @ 125 mls/hr IV .Q8H [facility] Last Admin: 06/06/18 17:39 Dose: 1,000 mls Morphine Sulfate (Morphine) 2 mg SLOW IVP Q4H PRN PRN Reason: Pain Stop: 06/07/18 16:16 Last Admin: 06/06/18 20:26 Dose: 2 mg Ondansetron HCl (Zofran Odt) 4 mg PO Q6H PRN PRN Reason: Nausea/Vomiting Ondansetron HCl (Zofran) 4 mg IVP Q6H PRN PRN Reason: Nausea/Vomiting Senna/Docusate Sodium (Senokot S) 1 tab PO BID [facility] Last Admin: 06/06/18 20:26 Dose: 1 tab Sodium Chloride (Flush - Normal Saline) 10 ml IVF PRN PRN PRN Reason: Saline Flush Last Admin: 06/05/18 22:14 Dose: 10 ml
[2018-06-07] MEDS: Morphine 2 MG/ML SYRINGE SLOW IVP PRN ×5 (00:30→22:36)
[2018-06-07] MEDS: Sodium Chloride 0.45% 1,000 ML IV SCH ×3 (02:04→18:06)
[2018-06-07] MEDS: HYDROcodone/Acetaminophen 5/325 mg Tablet PO PRN ×4 (05:21→20:30)
[2018-06-07 05:59] LABS: Reticulocyte Count 7.4 % (0.5-1.5)
[2018-06-07 06:10] LABS: Hemoglobin 10.1 g/dL (14.0-18.0); Lymphocytes 22 % (28-48); MDiff Complete? YES; Mean Corpuscular HGB CONC 33.4 g/dL (32.0-36.0); Mean Corpuscular Hemoglobin 25.3 pg (25.0-35.0); Mean Corpuscular Volume 75.6 fL (78.0-98.0); Mean Platelet Volume 11.9 fL (7.4-10.4); Monocytes 24 % (0-4); Neutrophil 51 % (31-61); Nucleated RBC 1 % (0); PLT Morphology Comment Appears Adequate; Platelet Count 264 thou/uL (130-400); Reactive Lymphocytes 3 % (0-10); Red Blood Cell (RBC) Count 4.01 mill/uL (4.00-5.20); Sickle Cells MODERATE= 6-15 cells (100X) (None Seen); White Blood Cell (WBC) Count 14.1 thou/uL (4.8-10.8)
[2018-06-07 06:13] LABS: ALT (SGPT) 21 U/L (8-55); AST (SGOT) 33 U/L (10-45); Albumin 4.2 g/dL (3.5-5.0); Alkaline Phosphatase 101 U/L (Less than 750); Anion Gap 13 mmol/L (10-20); BUN (Urea Nitrogen) 6 mg/dL (8.4-21.0); Bilirubin, Total 3.4 mg/dL (0.2-1.2); Calc. Creatinine Clearance 163 mL/min (70-130); Calcium 9.3 mg/dL (7.8-10.44); Carbon Dioxide 22 mmol/L (22-29); Chloride 102 mmol/L (98-107); Estimated GFR-MDRD Greater than 90; Globulin 4.1 g/dL (2.4-3.5); Glucose 81 mg/dL (70-105); Potassium 4.3 mmol/L (3.5-5.1); Protein, Total 8.3 g/dL (6.0-8.3); Sodium 133 mmol/L (136-145)
[2018-06-07] MEDS: Folic Acid 1 MG TAB PO SCH (08:02)
[2018-06-07] MEDS: cefTRIAXone\\ROCEPHIN 1 GM in Sodium Chloride 0.9% 100 ML IVPB SCH (08:02)
[2018-06-07] MEDS: Senokot S 8.6-50 MG TAB PO SCH ×2 (08:37→20:30)
--- NOTE | 2018-06-07 13:44 | PDOC.PN ---
- Subjective Encounter Start Date: 06/07/18 Encounter Start Time: 10:15 Patient seen and examined for sickle cell crisis. Pain better controlled. No CP/ SOB/palpitations. No other complaints. No overnight events - Objective Resuscitation Status - Order Detail: 06/05/18 16:16 Resuscitation Status Routine Resuscitation Status: FULL: Full Resuscitation MAR Reviewed: Yes Vital Signs & Weight: Vital Signs (12 hours) Temp Pulse Resp BP Pulse Ox 06/07/18 12:29 97.9 F 70 18 114/58 L 97 06/07/18 07:45 96 06/07/18 07:10 98.1 F 89 18 101/51 L 96 06/07/18 03:30 98.5 F 80 16 109/58 L 96 Weight Weight 132 lb 6.4 oz I&O: 06/06/18 06/07/18 06/08/18 06:59 06:59 06:59 Intake Total 4586 Output Total 3275 Balance 1311 Result Diagrams: 06/07/18 05:08 06/07/18 05:08 Additional Labs: Microbiology 06/06/18 07:33 Venous blood - Right Hand Blood Culture - Preliminary Specimen has been received and culture in progress. No Growth to date. 06/06/18 07:33 Venous blood - Right Hand Blood Culture - Preliminary Specimen has been received and culture in progress. No Growth to date. Laboratory Tests 06/05/18 06/06/18 06/06/18 10:46 04:37 04:37 WBC 26.6 H Retic Count 10.9 H Total Bilirubin 3.0 H 06/06/18 06/07/18 06/07/18 04:37 05:08 05:08 WBC Retic Count 7.8 H 7.4 H Total Bilirubin 3.4 H EKG Reviewed by me: Yes (Tele SR) Phys Exam - Physical Examination Constitutional: NAD Respiratory: no wheezing, no rhonchi Cardiovascular: RRR, no rub Gastrointestinal: soft, non-tender, positive bowel sounds Musculoskeletal: no edema Neurological: moves all 4 limbs Dx/Plan - Plan DVT proph w/SCDs 1. Vaso-occlusive sickle cell crisis. 2. History of sickle cell anemia. 3. Metabolic acidosis. 4. Leukocytosis. 5. History of cerebrovascular accident with residual left-sided weakness. 6. History of second-degree AV block type 1, last admission. PLAN: Cont current IV fluids/oxygen/folic acid Cont hydroxyurea Cont IV Morphine PRN AM labs Await ID input Cont Ceftriaxone Review of Systems - Review of Systems Respiratory: negative: Cough, Dry, Shortness of Breath, Hemoptysis, SOB with Excertion, Pleuritic Pain, Sputum, Wheezing Cardiovascular: negative: chest pain, palpitations, orthopnea, paroxysmal nocturnal dyspnea, edema, light headedness, other Gastrointestinal: negative: Nausea, Vomiting, Abdominal Pain, Diarrhea, Constipation, Melena, Hematochezia, Other - Medications/Allergies Allergies/Adverse Reactions: Allergies Allergy/AdvReac Type Severity Reaction Status Date / Time No Known Allergies Allergy Verified 06/06/18 06:19 Medications: Current Medications Acetaminophen (Tylenol) 650 mg PO Q4H PRN PRN Reason: Headache/Fever/Mild Pain (1-3) Hydrocodone Bitart/Acetaminophen ([place] 5/325) 1 tab PO Q4H PRN PRN Reason: Moderate Pain (4-6) Last Admin: 06/07/18 10:01 Dose: 1 tab Bisacodyl (Dulcolax) 10 mg [place] DAILYPRN PRN PRN Reason: Constipation Calcium Carbonate (Tums) 1,000 mg PO Q4H PRN PRN Reason: Heartburn or Indigestion Folic Acid (Folvite) 1 mg PO DAILY [facility] Last Admin: 06/07/18 08:02 Dose: 1 mg Hydroxyurea (Hydrea) 1,000 mg PO QPM [facility] Ceftriaxone Sodium 1 gm/ (Sodium Chloride) 100 mls @ 200 mls/hr IVPB Q24HR [facility] Last Admin: 06/07/18 08:02 Dose: 100 mls Sodium Chloride (1/2 Normal Saline) 1,000 mls @ 125 mls/hr IV .Q8H [facility] Last Admin: 06/07/18 10:42 Dose: 1,000 mls Morphine Sulfate (Morphine) 2 mg SLOW IVP Q4H PRN PRN Reason: Pain Stop: 06/09/18 08:00 Last Admin: 06/07/18 12:30 Dose: 2 mg Ondansetron HCl (Zofran Odt) 4 mg PO Q6H PRN PRN Reason: Nausea/Vomiting Ondansetron HCl (Zofran) 4 mg IVP Q6H PRN PRN Reason: Nausea/Vomiting Senna/Docusate Sodium (Senokot S) 1 tab PO BID [facility] Last Admin: 06/07/18 08:37 Dose: Not Given Sodium Chloride (Flush - Normal Saline) 10 ml IVF PRN PRN PRN Reason: Saline Flush Last Admin: 06/07/18 07:59 Dose: 10 ml
[2018-06-07] MEDS: Hydroxyurea 500 MG CAP PO SCH (20:30)
[2018-06-08] MEDS: HYDROcodone/Acetaminophen 5/325 mg Tablet PO PRN ×4 (01:04→18:32)
[2018-06-08] MEDS: Morphine 2 MG/ML SYRINGE SLOW IVP PRN ×4 (04:44→20:47)
[2018-06-08] MEDS: Sodium Chloride 0.45% 1,000 ML IV SCH ×3 (04:44→20:47)
[2018-06-08 06:03] LABS: ALT (SGPT) 18 U/L (8-55); AST (SGOT) 29 U/L (10-45); Albumin 3.9 g/dL (3.5-5.0); Alkaline Phosphatase 103 U/L (Less than 750); Anion Gap 13 mmol/L (10-20); BUN (Urea Nitrogen) 7 mg/dL (8.4-21.0); Bilirubin, Total 2.4 mg/dL (0.2-1.2); Calc. Creatinine Clearance 168 mL/min (70-130); Calcium 9.1 mg/dL (7.8-10.44); Carbon Dioxide 21 mmol/L (22-29); Chloride 103 mmol/L (98-107); Estimated GFR-MDRD Greater than 90; Globulin 3.9 g/dL (2.4-3.5); Glucose 78 mg/dL (70-105); Potassium 4.3 mmol/L (3.5-5.1); Protein, Total 7.8 g/dL (6.0-8.3); Sodium 133 mmol/L (136-145)
[2018-06-08 06:07] LABS: Reticulocyte Count 5.7 % (0.5-1.5)
[2018-06-08 06:10] LABS: Band 4 % (5-11); Eosinophils 1 % (0-10); Hemoglobin 9.1 g/dL (14.0-18.0); Lymphocytes 28 % (28-48); MDiff Complete? YES; Mean Corpuscular HGB CONC 32.2 g/dL (32.0-36.0); Mean Corpuscular Hemoglobin 24.3 pg (25.0-35.0); Mean Corpuscular Volume 75.6 fL (78.0-98.0); Mean Platelet Volume 10.5 fL (7.4-10.4); Monocytes 19 % (0-4); Neutrophil 48 % (31-61); Platelet Count 256 thou/uL (130-400); RBC Distribution Width 16.4 % (11.5-14.5); Red Blood Cell (RBC) Count 3.73 mill/uL (4.00-5.20); Sickle Cells MODERATE= 6-15 cells (100X) (None Seen); Target Cells SLIGHT = 2-5 cells (100X) (0-1/hpf); White Blood Cell (WBC) Count 11.4 thou/uL (4.8-10.8)
[2018-06-08] MEDS: Folic Acid 1 MG TAB PO SCH (08:06)
[2018-06-08] MEDS: cefTRIAXone\\ROCEPHIN 1 GM in Sodium Chloride 0.9% 100 ML IVPB SCH (08:06)
[2018-06-08] MEDS: Senokot S 8.6-50 MG TAB PO SCH ×2 (08:06→20:47)
--- NOTE | 2018-06-08 17:51 | CON ---
DATE OF CONSULTATION: 06/08/2018 REASON SEEN IN CONSULTATION: Neutrophilia in the setting of sickle cell crisis. HISTORY OF PRESENT ILLNESS: A 17-year-old with sickle cell anemia and usually 2 or 3 admissions per year for management of sickle cell crises as well as a prior CVA, subdural hematoma, and septic arthritis of left shoulder joint, who developed pain in the back, anterior chest area, and the proximal thighs the day before admission. No headaches. No visual symptoms, sore throat, odynophagia, or dysphagia. No dyspnea or cough. No abdominal pain or diarrhea. No genitourinary symptoms. No neurological symptoms. Initial findings showed temperature 98.4, pulse 83, BP 103/57, and O2 saturations 100%. He was given Dilaudid and IV fluids. Dilaudid was subsequently discontinued because of nausea. PAST MEDICAL HISTORY: Sickle cell anemia, CVA, residual weakness in left side, subdural hematoma, septic arthritis, and second-degree AV block, managed conservatively. PAST SURGICAL HISTORY: Splenectomy, cholecystectomy, and left shoulder I and D. ALLERGIES: NONE. CURRENT MEDICATIONS: 1. Folic acid. 2. Hydroxyurea. 3. Pen VK. 4. [place]. FAMILY HISTORY: Hypertension. SOCIAL HISTORY: Finished high school and lives with mother. Does not smoke cigarettes, never did. No drug use. PHYSICAL EXAMINATION: VITAL SIGNS: T-max 99.8. Other vital signs are not remarkable. Maybe mild tachycardia and O2 saturations are still ranging from 95% to 98% on room air. GENERAL: Appears in no distress. SKIN: With no skin injuries or ulcers or other lesions. The patient is voiding spontaneously. HEENT: No lymphadenopathy. Ocular movements conjugate. Nasal passages patent. Oral cavity normal. NECK: Supple. No jugular distention or carotid bruits. No thyromegaly. LUNGS: Symmetric air entry without crackles or wheezing. HEART: S1 and S2. Regular rate. ABDOMEN: Soft, not distended. Tenderness in the proximal appendicular structures, particularly in the thighs. EXTREMITIES: No joint inflammatory process noted at this time. Pulses 1+ in dorsalis pedis. Cap refill normal. NEURO: Nonfocal. LABORATORY DATA: White cell count shows a decrease from 26,000 to 11,000, hemoglobin 9.1, and platelets 256. The patient has 1% nucleated RBCs, moderate sickle cells noted. Retic count 5.7. Chemistry, the bilirubin 3.3. INR 2.4. Liver profile otherwise normal. Globulin 4.3 and now 3.9 and albumin 3.9. Sodium 133. Urinalysis was normal. Microbiology with negative multiple cultures. IMAGING STUDIES: Chest x-ray this admission with no acute cardiopulmonary disease. ASSESSMENT AND PLAN: Sickle cell anemia with 2 or 3 crises per year and prior complications as listed above, now with what appears to be just a regular sickle cell crisis event without other complicating factors identified at this point in time. According to the mother, the patient may have run out of his hydroxyurea, which may be a contributing factor. Continue supportive measures. Discontinue antimicrobial therapy. Job ID: [id number]
[2018-06-08] MEDS: Hydroxyurea 500 MG CAP PO SCH (20:47)
--- NOTE | 2018-06-08 21:14 | PDOC.PN ---
- Subjective Encounter Start Date: 06/08/18 Encounter Start Time: 11:00 Patient seen and examined. for sickle cell crisis. Pain better controlled. No CP /SOB/cough. No new complaints. No overnight events - Objective Resuscitation Status - Order Detail: 06/05/18 16:16 Resuscitation Status Routine Resuscitation Status: FULL: Full Resuscitation MAR Reviewed: Yes Vital Signs & Weight: Vital Signs (12 hours) Temp Pulse Resp BP Pulse Ox 06/08/18 15:34 98.8 F 87 15 112/58 L 98 06/08/18 10:48 98.2 F 79 16 109/58 L 100 Weight Weight 132 lb 9.6 oz I&O: 06/07/18 06/08/18 06/09/18 06:59 06:59 06:59 Intake Total 4586 2075 1895 Output Total 3275 1450 1600 Balance 1311 625 295 Result Diagrams: 06/08/18 04:51 06/08/18 04:51 EKG Reviewed by me: Yes (Tele SR) Phys Exam - Physical Examination Constitutional: NAD Respiratory: no wheezing, no rhonchi Cardiovascular: RRR, no rub Gastrointestinal: soft, non-tender, positive bowel sounds Musculoskeletal: no edema Neurological: moves all 4 limbs Dx/Plan - Plan DVT proph w/SCDs 1. Vaso-occlusive sickle cell crisis. 2. History of sickle cell anemia. 3. Metabolic acidosis. 4. Leukocytosis. 5. History of cerebrovascular accident with residual left-sided weakness. 6. History of second-degree AV block type 1, last admission. PLAN: Cont current meds including IV fluids/oxygen/folic acid Cont hydroxyurea Cont IV Morphine PRN Atbx dced DC in 24 hr if stable Review of Systems - Review of Systems Respiratory: negative: Cough, Dry, Shortness of Breath, Hemoptysis, SOB with Excertion, Pleuritic Pain, Sputum, Wheezing - Medications/Allergies Allergies/Adverse Reactions: Allergies Allergy/AdvReac Type Severity Reaction Status Date / Time No Known Allergies Allergy Verified 06/06/18 06:19 Medications: Current Medications Acetaminophen (Tylenol) 650 mg PO Q4H PRN PRN Reason: Headache/Fever/Mild Pain (1-3) Hydrocodone Bitart/Acetaminophen ([place] 5/325) 1 tab PO Q4H PRN PRN Reason: Moderate Pain (4-6) Last Admin: 06/08/18 18:32 Dose: 1 tab Bisacodyl (Dulcolax) 10 mg [place] DAILYPRN PRN PRN Reason: Constipation Calcium Carbonate (Tums) 1,000 mg PO Q4H PRN PRN Reason: Heartburn or Indigestion Folic Acid (Folvite) 1 mg PO DAILY [facility] Last Admin: 06/08/18 08:06 Dose: 1 mg Hydroxyurea (Hydrea) 1,000 mg PO QPM [facility] Last Admin: 06/08/18 20:47 Dose: 1,000 mg Sodium Chloride (1/2 Normal Saline) 1,000 mls @ 125 mls/hr IV .Q8H [facility] Last Admin: 06/08/18 20:47 Dose: 1,000 mls Morphine Sulfate (Morphine) 2 mg SLOW IVP Q4H PRN PRN Reason: Pain Stop: 06/09/18 08:00 Last Admin: 06/08/18 20:47 Dose: 2 mg Ondansetron HCl (Zofran Odt) 4 mg PO Q6H PRN PRN Reason: Nausea/Vomiting Ondansetron HCl (Zofran) 4 mg IVP Q6H PRN PRN Reason: Nausea/Vomiting Senna/Docusate Sodium (Senokot S) 1 tab PO BID [facility] Last Admin: 06/08/18 20:47 Dose: 1 tab Sodium Chloride (Flush - Normal Saline) 10 ml IVF PRN PRN PRN Reason: Saline Flush Last Admin: 06/07/18 07:59 Dose: 10 ml
[2018-06-09] MEDS: HYDROcodone/Acetaminophen 5/325 mg Tablet PO PRN ×2 (00:06→06:45)
[2018-06-09] MEDS: Morphine 2 MG/ML SYRINGE SLOW IVP PRN ×2 (03:39→10:27)
[2018-06-09] MEDS: Sodium Chloride 0.45% 1,000 ML IV SCH ×2 (04:50→12:03)
[2018-06-09] MEDS: Folic Acid 1 MG TAB PO SCH (07:40)
[2018-06-09] MEDS: Senokot S 8.6-50 MG TAB PO SCH (07:41)
[2018-06-09] MEDS ORDERED: Penicillin V Potassium 250 MG TAB PO SCH (11:30)
[2018-06-09 11:44] VITALS: BP 102/52; TEMP 98.4
--- NOTE | 2018-06-09 17:00 | DIS ---
DATE OF ADMISSION: 06/05/2018 DATE OF DISCHARGE: 06/09/2018 FOLLOWUP: 1. Follow up with primary care physician at [facility]. 2. The patient was advised to follow up with robotic weld technician as soon as possible. ALLERGIES: NO KNOWN DRUG ALLERGIES. DISCHARGE MEDICATIONS: Same as admission medications. A prescription for acyclovir topical ointment was provided for possible herpes simplex virus lesion in the nose. The patient was seen and examined on the day of discharge. Denies any new complaints. No chest pain, shortness of breath, or palpitations reported. BRIEF HOSPITAL COURSE: The patient is a 17-year-old male with sickle cell anemia, presented to the emergency room on 05 June 2018 with generalized aches and pains. His workup was consistent with vaso-occlusive sickle cell crisis. His reticulocyte on admission was 10.9 and at discharge was 5.7. He showed good improvement with IV fluids and oxygen. His pain was controlled with IV narcotics. His total bilirubin on admission was 3.3 and at discharge was 2.4, which is close to his baseline. He was advised to follow up with Hematology as outpatient. Due to the low-grade fever and leukocytosis, he was seen by Infectious Disease, Dr. Lees. Dr. Lees recommended discontinuation of antibiotics. His WBC on admission was 18.6, at discharge was 11.4, and maximum WBC this admission was 26.6. He was advised to resume his penicillin prophylaxis. FINAL DIAGNOSES: 1. Vaso-occlusive sickle cell crisis. 2. Metabolic acidosis, resolved. 3. Leukocytosis, unlikely to be infectious for infective disease. 4. History of sickle cell anemia. 5. History of cerebrovascular accident with residual left-sided weakness. 6. History of second-degree AV block type 1, last admission. 7. Hyponatremia. 8. Elevated bilirubin secondary to hemolysis. PLAN: Plan of care was discussed with the patient and the family in detail. They stated understanding. Job ID: [id number]
== END 2018-06-09 13:06 | disposition home or self-care (01) | DRG 812 ==
LOC: ERS 09:01 → ERHOLD 15:37 → 2NO 19:41
PROVIDERS: ADMIT Internal Medicine; ATTEND Internal Medicine
DX: D57.00 Hb-SS disease with crisis, unspecified (principal); E87.2 Acidosis; E87.1 Hypo-osmolality and hyponatremia; B00.9 Herpesviral infection, unspecified; Z86.73 Personal history of transient ischemic attack (TIA), and cerebral infarction without residual deficits; Z82.49 Family history of ischemic heart disease and other diseases of the circulatory system
CPT/HCPCS: 36415; 36416; 71045; 80053; 81003; 83735; 85007; 85025; 85027; 85046; 87040; 93005; 96361; 96365; 96366; 96374; 96375; 96376; J0696; J1170; J1885; J2270; J2405; J7050; Q0162

== ENCOUNTER 2018-11-26 00:37 | Emergency (ER) | payer OTHER | END 2018-11-26 01:16 | disposition left against medical advice (07) | LOC: ERS 00:37 | DX: Z53.21 Procedure and treatment not carried out due to patient leaving prior to being seen by health care provider (principal) ==

== ENCOUNTER 2019-03-08 23:12 | Emergency (ER) | payer OTHER ==
[2019-03-09 02:20] LABS: Reticulocyte Count 4.4 % (0.5-1.5)
[2019-03-09 02:26] LABS: Hemoglobin 12.6 g/dL (14.0-18.0); Mean Corpuscular HGB CONC 33.8 g/dL (32.0-36.0); Mean Corpuscular Hemoglobin 27.5 pg (25.0-35.0); Mean Corpuscular Volume 81.5 fL (78.0-98.0); Mean Platelet Volume 9.3 fL (7.4-10.4); Platelet Count 316 thou/uL (130-400); Red Blood Cell (RBC) Count 4.56 mill/uL (4.00-5.20)
[2019-03-09] MEDS ORDERED: Morphine 4 MG/ML VIAL ONE ×2 (02:26→04:10)
[2019-03-09 02:31] LABS: ALT (SGPT) 10 U/L (8-55); AST (SGOT) 19 U/L (5-34); Albumin 4.8 g/dL (3.5-5.0); Alkaline Phosphatase 117 U/L (Less than 750); Anion Gap 17 mmol/L (10-20); BUN (Urea Nitrogen) 7 mg/dL (8.9-20.6); Calc. Creatinine Clearance 0 mL/min (70-130); Carbon Dioxide 21 mmol/L (22-29); Chloride 101 mmol/L (98-107); Estimated GFR-MDRD Greater than 90; Globulin 4.4 g/dL (2.4-3.5); Glucose 97 mg/dL (70-105); Potassium 3.6 mmol/L (3.5-5.1); Protein, Total 9.2 g/dL (6.0-8.3); Sodium 135 mmol/L (136-145)
[2019-03-09 02:44] LABS: Hypochromia SLIGHT = 6-15 cells (100X) (0-5/hpf); Lymphocytes 12 % (28-48); MDiff Complete? YES; Monocytes 3 % (0-4); Neutrophil 85 % (31-61); Nucleated RBC 1 % (0); Platelet Morphology Comment Appears Adequate; Polychromasia SLIGHT = 2-3 cells (100X) (0-2/hpf); Target Cells SLIGHT = 2-5 cells (100X) (0-1/hpf); White Blood Cell (WBC) Count 16.3 thou/uL (4.8-10.8)
--- NOTE | 2019-03-09 08:01 | RAD ---
Radiograph right hip 2 views: DATE: 03/09/2019 Time: 1:36 AM HISTORY: 18-year-old male with right hip pain. FINDINGS: No fracture or dislocation. Sclerosis of femoral head. No femoral head collapse. Multifocal tiny luce ncies at subchondral location of femoral head and acetabular roof. Diffuse mild to moderate homogeneous joint space narrowing. Heterotopic ossification lateral to hip. Mixed sclerotic and lucen t changes of right ilium. IMPRESSION: 1. Heterogeneous osseous density is evidence for sickle cell disease. 2. Heterotopic ossification. 3. No fracture.
== END 2019-03-09 05:14 | disposition short-term general hospital (02) ==
LOC: ERS 23:12
DX: M00.9 Pyogenic arthritis, unspecified (principal); D57.1 Sickle-cell disease without crisis; Z86.73 Personal history of transient ischemic attack (TIA), and cerebral infarction without residual deficits; Z79.899 Other long term (current) drug therapy
CPT/HCPCS: 36415; 80053; 83605; 84145; 85025; 85046; 85652; 86140; 87040; 96361; 96365; 96366; 96368; 96375; 96376; J0744; J2270; J3370

== ENCOUNTER 2019-03-31 23:14 | Emergency (ER) | payer OTHER ==
[~2019-03-31 23:14] MED LIST: ISOVUE-370 76%-LOCM 1 ML ONE
[2019-03-31] MEDS ORDERED: Piperacillin/Tazobactam 4.5 GM VIAL ONE (23:31)
[2019-03-31] MEDS ORDERED: Ondansetron PF 4 MG/2 ML Vial ONE (23:52)
[2019-04-01 00:09] LABS: ALT (SGPT) 15 U/L (8-55); AST (SGOT) 28 U/L (5-34); Albumin 4.9 g/dL (3.5-5.0); Alkaline Phosphatase 123 U/L (50-130); Anion Gap 18 mmol/L (10-20); BUN (Urea Nitrogen) 13 mg/dL (8.9-20.6); Calc. Creatinine Clearance 0 mL/min (70-130); Calcium 10.5 mg/dL (7.8-10.44); Carbon Dioxide 19 mmol/L (22-29); Chloride 101 mmol/L (98-107); Estimated GFR-MDRD 76; Globulin 5.8 g/dL (2.4-3.5); Glucose 136 mg/dL (70-105); Potassium 3.8 mmol/L (3.5-5.1); Protein, Total 10.7 g/dL (6.0-8.3); Sodium 134 mmol/L (136-145)
[2019-04-01 00:26] LABS: Band 9 % (5-11); Lymphocytes 13 % (28-48); MDiff Complete? YES; Mean Corpuscular HGB CONC 32.7 g/dL (32.0-36.0); Mean Corpuscular Hemoglobin 27.6 pg (25.0-35.0); Mean Corpuscular Volume 84.4 fL (78.0-98.0); Mean Platelet Volume 7.8 fL (7.4-10.4); Monocytes 6 % (0-4); Neutrophil 72 % (31-61); Platelet Count 778 thou/uL (130-400); Red Blood Cell (RBC) Count 3.99 mill/uL (4.00-5.20); White Blood Cell (WBC) Count 16.7 thou/uL (4.8-10.8)
[2019-04-01] MEDS ORDERED: Ketorolac Tromethamine 30 MG/ML VIAL ONE (00:29)
--- NOTE | 2019-04-01 07:30 | CT ---
PRELIMINARY REPORT/[facility]/EMERGENCY AFTER HOURS PROCEDURE PROCEDURE INFORMATION: Exam: CT Abdomen and Pelvis With Contrast Exam date and time: 03/31/2019 11:58 PM Clinical history: 18 years old, male; Abdominal pain; Acute; Patient HX: 18 y/o m, with h/o sickle ce ll dz, CVA, splenectomy, cholecystectomy, recent placement abx hip spacer following multiple washouts for septic joint, now presents to ED C/O abd pain x 1 day with n/v/d that began today. He denies fev er, chills, bld in stool or emesis. PT was recently discharged from [facility] following spacer placement an d has been in a rehab facility for extensive PT TECHNIQUE: Imaging protocol: Computed tomography of the abdomen and pelvis with intravenous contrast. COMPARISON: No relevant prior studies available. FINDINGS: Liver: Normal. No mass. Gallbladder and bile ducts: Prior cholecystectomy. Pancreas: Normal. No ductal dilation. Spleen: Spleen is absent. Adrenals: Normal. No mass. Kidneys and ureters: Normal. No hydronephrosis. Stomach and bowel: No bowel wall thickening or intestinal obstruction. Appendix: Appendix not visualized. No evidence of appendicitis. Intraperitoneal space: Unremarkable. No free air. No significant fluid collection. Vasculature: Unremarkable. No abdominal aortic aneurysm. Lymph nodes: Unremarkable. No enlarged lymph nodes. Bladder: Unremarkable as visualized. Reproductive: Unremarkable as visualized. Bones/joints: Chronic remodeling of the left femoral head related to sickle cell anemia. Right hip pr osthesis. Diffuse changes of the bones related to sickle cell anemia. Soft tissues: Unremarkable. IMPRESSION: 1. No acute findings. 2. Chronic findings as above. Thank you for allowing us to participate in the care of your patient. Dictated and Authenticated by: Star Valenzuela MD 04/01/2019 12:36 AM Central Time ([place] & [place]) FINAL REPORT I agree with the preliminary report provided. CODE QA POS:
== END 2019-04-01 02:45 | disposition short-term general hospital (02) ==
LOC: ERS 23:14
DX: A41.9 Sepsis, unspecified organism (principal); Z86.73 Personal history of transient ischemic attack (TIA), and cerebral infarction without residual deficits; Z79.899 Other long term (current) drug therapy
CPT/HCPCS: 74177; 80053; 83605; 85025; 85652; 86140; 87040; 93005; 96361; 96365; 96375; 99292; J1885; J2405; J2543; J3370; Q9966